=== PATIENT | female | born 1945 | race Caucasian/White ===

== ENCOUNTER 2021-05-31 15:39 | Observation (INO) | payer MEDICARE, OTHER, SELFPAY ==
[2021-05-31] VITALS (11 sets, daily range): BP systolic 62–159; BP diastolic 45–83; PULSE 60–89; RESP 16–20; TEMP 36.6–36.8; O2SAT 95–99; BMI 32.8; BMI 31.2
--- NOTE | 2021-05-31 15:51 | ED.RN ---
CALLED FOR EKG AT 1548.
--- NOTE | 2021-05-31 16:28 | ED.RN ---
PT BP 62/45 ON MONITOR. THIS RN AT BEDSIDE TO REASSESS PT, PT PALE, DAIPHORETIC, C/O DIZZINESS. EMOTIONAL SUPPORT AND DEEP BREATHING PROVIDED. PT BP RETAKEN AND IS 88/61. DR. ALANIS NOTIFIED OF PT SX. PT DENIES CHEST PAIN.
--- NOTE | 2021-05-31 16:35 | EKG12_ITS ---
Test Reason : Blood Pressure : / mmHG Vent. Rate : 070 BPM Atrial Rate : 070 BPM P-R Int : 144 ms QRS Dur : 074 ms QT Int : 390 ms P-R-T Axes : 011 010 036 degrees QTc Int : 421 ms Normal sinus rhythm Normal ECG Confirmed by JOMAR BOWMAN, CONRADO ([id number]), digital editor WARREN LO ([id number]) on 06/03/2021 9:32:45 AM Referred By: EUN Confirmed By:CONRADO HADLEY MD
--- NOTE | 2021-05-31 16:35 | RAD_ITS ---
STUDY: X-RAY CHEST REASON FOR EXAM: Female, 75 years old. chest pain TECHNIQUE: AP COMPARISON: 08/28/2016 FINDINGS: The lungs are clear and expanded. There is no demonstrated pleural abnormality. Normal size heart. Normal mediastinum and butch. Normal visualized pulmonary arteries. There is atherosclerotic calcification of the aortic arch with tortuosity. Normal visualized thoracic spine. Normal visualized ribs, clavicles, and shoulders. Moderate size hiatal hernia. RAD/Chest 1 View (Portable) IMPRESSION: No acute cardiopulmonary process. Electronically Signed: Manny Guevara MD (Brooks) at 17:13 EDT , Service support ,
[2021-05-31 17:03] LABS: Absolute Lymphocyte Count 3.68 X10^3/uL (0.83-4.51); Absolute Neutrophil Count 4.6 X10^3/uL (2.0-7.7); Basophil# 0.03 X10^3/uL; Basophil% 0.3 % (0-1); Eosinophil# 0.11 X10^3/uL; Eosinophils% 1.2 % (0-5); Hematocrit 40.2 % (37-47); Hemoglobin 13.3 g/dL (12.0-15.0); Lymphocyte # 3.68 X10^3/ul (0.83-4.51); Lymphocyte % 40.4 % (19-41); Mean Corp Hgb Conc 33.1 g/dL (32-36); Mean Corpuscular Hgb 29.7 pg (27.0-32.0); Mean Corpuscular Volume 89.7 fL (81-99); Mean Platelet Vol. 13.8 fl (6.2-12.0); Monocyte% 7.7 % (0-10); NRBC Flagged by Analyzer 0 % (0-5); Neutrophil # 4.56 X10^3/uL (2.7-7.7); Neutrophil % 50.2 % (47-70); Platelet Count 226 K/mm3 (150-450); RBC Distribution Width CV 14.2 % (11.6-14.6); Red Blood Count 4.48 M/mm3 (4.2-5.4); White Blood Count 9.1 K/mm3 (4.4-11.0)
[2021-05-31 17:16] LABS: Anion Gap 6 (5-15); BUN 19 mg/dL (7-18); BUN/Creat Ratio 17.3 RATIO (10-20); Calcium,Total 8.8 mg/dL (8.5-10.1); Chloride 106 mmol/L (98-107); EST Glomerular Filtration Rate 51 mL/min (>60); Est Glom Filt Rate - Afr Amer 62 mL/min (>60); Estimated Creatinine Clearance 38.16 ml/min; Glucose 123 mg/dL (74-106); Magnesium 2.2 mg/dL (1.6-2.6); Potassium 4.1 mmol/L (3.5-5.1); Sodium Level 139 mmol/L (136-145); Thyroid Stim Hormone (TSH) 2.27 uIU/mL (0.358-3.74); Troponin-I HS 17 pg/mL (3.0-54.0)
--- NOTE | 2021-05-31 18:03 | EDS_ITS ---
HPI History of Present Illness Chief Complaint: Syncope Informant: patient and family Narrative Narrative: Patient had a syncopal episode today in the store. She had felt fine. She had just recently eaten. She was having no symptoms at all when suddenly she felt lightheaded. She got sweaty. She states her vision got mono color and narrow. She was leaning on some equipment. Her daughter got her sat down in a chair. At that point she seemed to go out and was not responsive for about a minute. There was no actual fall but she had already been put in the chair. She then came back around has been doing well. She had an episode that was not quite as bad here in the emergency department. Evidently her heart rate did not change but she got diaphoretic and all the same symptoms and her blood pressure dropped to about 60 systolic. It is now back to normal. She had no abdominal or back pain no flank pain. No chest pain or palpitations. She has not had black or bloody stools. She is not on anticoagulation other than aspirin. She has no history of heart disease. She has never had symptoms like this before. She was on lisinopril since the summer. She was taken off of that because her blood pressure was dropping too much. About a week ago she was started on losartan 25 mg. [facility] Medical History Former smoker GERD (gastroesophageal reflux disease) HTN (hypertension) Meniere's disease Migraines Osteoporosis TIA (transient ischemic attack) Home Medications aspirin 81 mg PO DAILY@0800 08/28/16 [History Last Taken 05/30/21] estradiol [Estrace] 0.5 mg PO DAILY 08/28/16 [History Last Taken 05/30/21] levothyroxine 88 mcg PO DAILY 08/28/16 [History Last Taken 05/31/21] meclizine 12.5 - 25 mg PO Q6H PRN PRN 08/28/16 [History Last Taken Unknown] meloxicam [Mobic] 15 mg PO DAILY PRN PRN 08/28/16 [History Last Taken Unknown] multivitamin with folic acid [Thera] 1 tab PO DAILY 08/28/16 [History Last Taken 05/30/21] omeprazole 20 mg PO DAILY 08/28/16 [History Last Taken 05/31/21] polyethylene glycol 3350 17 g PO DAILY 08/28/16 [History Last Taken Unknown] losartan 25 mg PO DAILY 05/31/21 [History Last Taken 05/31/21] Allergy/AdvReac Type Severity Reaction Status Date / Time No Known Allergies Allergy Verified 05/31/21 15:39 Family History Mother Dementia Father Heart disease Surgical History H/O abdominal hysterectomy History of appendectomy Hx of cholecystectomy Hx of tonsillectomy Social History household members: other details: Currently living with her daughter. Smoking Status: Former smoker how long ago did patient quit smoking: It several years prior, prior to this 1 pack/day since she been a teenager. alcohol intake: never substance use type: does not use ROS ROS ED Constitutional Constitutional ED: Denies chills or fever(s) Eyes Eyes: Reports change in vision; Denies blurry vision or diplopia ENT ENT ED: Denies rhinorrhea or sore throat Cardiovascular Cardiovascular: Denies chest pain, palpitations or racing heartbeat Respiratory/Chest Respiratory/Chest: Denies cough or dyspnea Gastrointestinal Gastrointestinal: Denies abdominal pain, melena, nausea or vomiting Genitourinary Genitourinary ED: Denies dysuria or urinary frequency Musculoskeletal Musculoskeletal: Denies back pain, myalgias or neck pain Integumentary Reports other Details: Transient diaphoresis ; Denies rash Neurologic Neurologic: Denies headache(s), paresthesias or weakness Endocrine Endocrinology: Denies polydipsia or polyuria Allergic/Immunologic Allergic/Immunologic ED: Denies urticaria EXAM Physical Exam Const Vital Signs: 05/31/21 15:40 05/31/21 15:44 05/31/21 16:15 Temperature 97.8 F Temperature Source Oral Pulse Rate 68 60 Respiratory Rate 20 H 18 Respiratory Effort Normal Non-Labored Respiratory Pattern Normal Blood Pressure 129/65 H 62/45 L Blood Pressure Mean 86 50 Pulse Ox 96 95 Oxygen Delivery Method Room Air Room Air 05/31/21 16:31 05/31/21 16:37 05/31/21 17:04 Temperature Temperature Source Pulse Rate 70 Respiratory Rate 20 H Respiratory Effort Respiratory Pattern Blood Pressure 109/63 140/69 H Blood Pressure Mean 78 92 Pulse Ox 98 99 Oxygen Delivery Method Room Air Room Air 05/31/21 18:09 Temperature 97.8 F Temperature Source Oral Pulse Rate 73 Respiratory Rate 17 Respiratory Effort Respiratory Pattern Blood Pressure 121/73 H Blood Pressure Mean 89 Pulse Ox 95 Oxygen Delivery Method Room Air Positive well nourished and well developed General Appearance ED: well developed and NAD; Negative for pallor HEENT Reports moist mucous membranes Negative for trauma or tenderness Eyes General Eye ED: Negative for pale conjunctiva or scleral icterus Neck No no JVD Chest Wall inspection of chest normal Resp normal respiratory effort and clear to auscultation bilaterally Effort and Inspection: Negative for pain with movement Auscultation: Negative for rales, rhonchi or wheezes Cardio regular rate, regular rhythm and no murmurs GI normal to inspection, nondistended, normoactive bowel sounds, non-tender and non-distended GI Narrative: No bruit heard and no mass felt. Palpation: soft Back/Spine no CVA tenderness Neuro oriented x3 Sensorium / Orientation: alert Psych mental status grossly normal Skin no rashes or lesions noted and no wounds Skin Narrative: No diaphoresis at this time. General Skin Exam: Negative for jaundice or pallor MDM MDM MDM Narrative Medical decision making narrative: Patient's blood work including CBC electrolytes show no acute process. TSH troponin magnesium and D-dimer are also okay. Chest x-ray shows no acute process. My concern is that this patient had 2 new syncopal/near syncopal episodes today. She got diaphoretic with these. She dropped her blood pressure with one of them that we know of. She is comfortable now. There is no history of AAA or symptoms of it. Her D-dimer is negative. No reported melena or blood in the stool. Hemoglobin is normal. However I think with this new onset and multiple episodes she should be admitted. I discussed the case with the hospitalist. Lab Data Attestation: I reviewed the patient's lab results. Labs: Laboratory Results - last 24 hr 05/31/21 05/31/21 05/31/21 15:40 15:40 15:40 WBC 9.1 RBC 4.48 Hgb 13.3 Hct 40.2 MCV 89.7 MCH 29.7 MCHC 33.1 RDW Std Deviation 47.0 H RDW Coeff of [place] 14.2 Plt Count 226 MPV 13.8 H Immature Gran % (Auto) 0.200 Neut % (Auto) 50.2 Lymph % (Auto) 40.4 [place] % (Auto) 7.7 Eos % (Auto) 1.2 Baso % (Auto) 0.3 Absolute Neuts (auto) 4.6 Absolute Lymphs (auto) 3.68 Nucleated RBC % 0 D-Dimer Quant (PE/DVT) 0.40 Sodium 139 Potassium 4.1 Chloride 106 Carbon Dioxide 27.0 Anion Gap 6 BUN 19 H Creatinine 1.10 H Estim Creat Clear Calc 38.16 Est GFR (MDRD) Af Amer 62 Est GFR (MDRD) Non-Af 51 L BUN/Creatinine Ratio 17.3 Glucose 123 H Calcium 8.8 Magnesium 2.2 Troponin I High Sens 17 TSH 2.27 05/31/21 15:40 WBC RBC Hgb Hct MCV MCH MCHC RDW Std Deviation RDW Coeff of [place] Plt Count MPV Immature Gran % (Auto) Neut % (Auto) Lymph % (Auto) [place] % (Auto) Eos % (Auto) Baso % (Auto) Absolute Neuts (auto) Absolute Lymphs (auto) Nucleated RBC % D-Dimer Quant (PE/DVT) Sodium Potassium Chloride Carbon Dioxide Anion Gap BUN Creatinine Estim Creat Clear Calc Est GFR (MDRD) Af Amer Est GFR (MDRD) Non-Af BUN/Creatinine Ratio Glucose Calcium Magnesium 2.2 Troponin I High Sens TSH Radiography Diagnostic Testing: Clinical Impression(s) from Imaging Studies Chest X-Ray 05/31/21 16:35 IMPRESSION: No acute cardiopulmonary process. Electronically Signed: Manny Guevara MD (Brooks) at 17:13 EDT , Service support , EKG Initial EKG: Comments: EKG done for syncope read by me showed a normal sinus rhythm with overall rate of 70. No ectopy. No acute ST elevation or depression. NC interval, QRS duration and QTc are normal. No significant change from 28 August 2016. Discharge Plan Dx/Rx/DC Orders Clinical Impression: Syncope and collapse Disposition Disposition: Acute Care Hospital [facility] Discharge Date/Time: 05/31/21 18:47
--- NOTE | 2021-05-31 18:13 | NURSING ---
PCU OBS WHITE SYNCOPE, HYPOTENSION
--- NOTE | 2021-05-31 19:13 | PCM.HP.STD ---
HPI - General General Date of Admission: 05/31/21 Date of Service: 05/31/21 Chief Complaint: Syncopal events. HPI Narrative The patient is a 75 y/o F w/ PMHx: Former Tobacco use, Meniere's disease, HTN, GERD who presents to the [facility] ED on 05/31/21 with history of syncopal events while walking through [id number], reporting that she felt lightheaded, dizzy, had vision tunneling prompting her to have to sit down with syncopal event lasting 1 to 2 minutes with improvement following however patient did have recurrent event while in the emergency room although did not completely lose consciousness but became diaphoretic, lightheaded, dizzy and described the darkening of her vision with significant decrease in her blood pressure to 62/48 during the event however this improved and she had no recurrent events while in the ED. Work-up in the ED included T 97.8, heart rate 68, BP initially 129/65 with transiently recorded hypotension 62/48 however improved to 140/69, respiratory rate 20, 99% on room air, CBC with WC 9.1, hemoglobin 13.3, platelet 226 without marked shift, BMP with BUN/creatinine 19/1.10, glucose 123 otherwise not marked appearing, mag 2.2, troponin high-sensitivity 17, TSH 2.2, chest x-ray no acute cardiopulmonary finding, EKG with sinus rhythm with no acute evidence of ischemia. [facility] Medical History (Updated 05/31/21 @ 19:[address] Argelia Huff MD) GERD (gastroesophageal reflux disease) HTN (hypertension) Meniere's disease Home Medications aspirin 81 mg PO DAILY@0800 08/28/16 [History Last Taken Unknown] calcium carbonate-vitamin D3 [Caltrate 600 Plus D3 Tablet] 1 ea PO DAILY 08/28/16 [History Last Taken Unknown] estradiol [Estrace] 0.5 mg PO DAILY 08/28/16 [History Last Taken Unknown] levothyroxine 88 mcg PO DAILY 08/28/16 [History Last Taken Unknown] meclizine 12.5 - 25 mg PO Q6H PRN PRN 08/28/16 [History Last Taken Unknown] meloxicam [Mobic] 15 mg PO DAILY PRN PRN 08/28/16 [History Last Taken Unknown] multivitamin with folic acid [Thera] 1 tab PO DAILY 08/28/16 [History Last Taken Unknown] omeprazole 20 mg PO DAILY 08/28/16 [History Last Taken Unknown] polyethylene glycol 3350 17 g PO DAILY 08/28/16 [History Last Taken Unknown] losartan 25 mg PO DAILY 05/31/21 [History Last Taken Unknown] Allergy/AdvReac Type Severity Reaction Status Date / Time No Known Allergies Allergy Verified 05/31/21 15:39 Family History (Updated 05/31/21 @ 19:[address] Argelia Huff MD) Mother Dementia Father Heart disease Surgical History (Updated 05/31/21 @ 15:45 by Mi Pelaez) H/O abdominal hysterectomy History of appendectomy Hx of cholecystectomy Hx of tonsillectomy Social History (Updated 05/31/21 @ 19:[address] Argelia Huff MD) household members: other details: Currently living with her daughter. Smoking Status: Former smoker how long ago did patient quit smoking: It several years prior, prior to this 1 pack/day since she been a teenager. alcohol intake: never substance use type: does not use ROS ROS Narrative Admission Review of Systems: CONSTITUTIONAL: No weight loss, fever, chills, + weakness or fatigue. HEENT: + Vision changes with syncopal and near syncopal events Eyes: No yellow sclerae. Ears, Nose, Throat: No hearing loss, sneezing, congestion, runny nose or sore throat. SKIN: No rash or itching, lesions, wounds. CARDIOVASCULAR: + Syncopal events no chest pain, chest pressure or chest discomfort, palpitations, edema, orthopnea. RESPIRATORY: No shortness of breath, cough or sputum, wheezing, hemoptysis. GASTROINTESTINAL: No anorexia, nausea, vomiting or diarrhea, abdominal pain, melena, BRBPR. GENITOURINARY: No dysuria, frequency, urgency or retention. NEUROLOGICAL: + Syncopal event with collapse, lightheadedness and dizziness. No headache, paralysis, ataxia, numbness or tingling in the extremities, focal weakness, change in bowel or bladder control, seizure. MUSCULOSKELETAL: No muscle, back pain, joint pain or stiffness. HEMATOLOGIC: No anemia, bleeding or bruising. LYMPHATICS: No enlarged nodes. No history of splenectomy. PSYCHIATRIC: No history of depression or anxiety. ENDOCRINOLOGIC: No reports of sweating, cold or heat intolerance. No polyuria or polydipsia. ALLERGIES: No history of asthma, hives, eczema or rhinitis. Vital Signs Vital Signs Vital Signs: 05/31/21 15:40 05/31/21 15:44 05/31/21 16:15 Temperature 97.8 F Temperature Source Oral Pulse Rate 68 60 Respiratory Rate 20 H 18 Respiratory Effort Normal Non-Labored Respiratory Pattern Normal Blood Pressure 129/65 H 62/45 L Blood Pressure Mean 86 50 Pulse Ox 96 95 Oxygen Delivery Method Room Air Room Air 05/31/21 16:31 05/31/21 16:37 05/31/21 17:04 Temperature Temperature Source Pulse Rate 70 Respiratory Rate 20 H Respiratory Effort Respiratory Pattern Blood Pressure 109/63 140/69 H Blood Pressure Mean 78 92 Pulse Ox 98 99 Oxygen Delivery Method Room Air Room Air 05/31/21 18:09 Temperature 97.8 F Temperature Source Oral Pulse Rate 73 Respiratory Rate 17 Respiratory Effort Respiratory Pattern Blood Pressure 121/73 H Blood Pressure Mean 89 Pulse Ox 95 Oxygen Delivery Method Room Air Weight Weight: 191 lb 2.252 oz Body Mass Index (BMI) 32.8 Physical Exam Narrative Physical Examination: General: Awake, alert, oriented x 3 and cooperative, seated upright in the ED bed in no apparent distress, notes feeling improved since initial syncopal event at [facility]'s and near syncopal event while in the ED. Skin: Normal color, normal turgor, no icterus, no cyanosis. HEENT: AT/NC, EOMI, PERRLA, mildly dry MM, no carotid bruits or JVD noted. Lungs: Mildly diminished, appropriate effort, no rales, ronchi or wheezing. Heart: Regular rate and rhythm; no gallop, rub audible. Abdomen: Soft, obese, NTTP, ND, normal BS, no HSM. Extremities: No cyanosis, clubbing, or edema. Neurological: Patient awake, alert, oriented as noted, cognitive function intact; pupils equally reactive to light and accommodation, cranial nerves II-XII grossly normal, moving all 4 extremities, no focal deficits, strength preserved. Psychiatric: Affect appears normal, no acute evidence of depressive or anxiety feelings. Results Lab / Micro Data Result Diagrams: 05/31/21 15:40 05/31/21 15:40 Labs: Laboratory Results - last 24 hr 05/31/21 15:40: WBC 9.1, RBC 4.48, Hgb 13.3, Hct 40.2, MCV 89.7, MCH 29.7, MCHC 33.1, RDW Std Deviation 47.0 H, RDW Coeff of [place] 14.2, Plt Count 226, MPV 13.8 H, Immature Gran % (Auto) 0.200, Neut % (Auto) 50.2, Lymph % (Auto) 40.4, [place] % (Auto) 7.7, Eos % (Auto) 1.2, Baso % (Auto) 0.3, Absolute Neuts (auto) 4.6, Absolute Lymphs (auto) 3.68, Nucleated RBC % 0 05/31/21 15:40: Sodium 139, Potassium 4.1, Chloride 106, Carbon Dioxide 27.0, Anion Gap 6, BUN 19 H, Creatinine 1.10 H, Estim Creat Clear Calc 38.16, Est GFR (MDRD) Af Amer 62, Est GFR (MDRD) Non-Af 51 L, BUN/Creatinine Ratio 17.3, Glucose 123 H, Calcium 8.8, Magnesium 2.2, Troponin I High Sens 17, TSH 2.27 05/31/21 15:40: D-Dimer Quant (PE/DVT) 0.40 Radiology Impression Chest X-Ray 05/31/21 16:35 IMPRESSION: No acute cardiopulmonary process. Electronically Signed: Manny Guevara MD (Brooks) at 17:13 EDT , Service support , Assessment & Plan Assessment/Plan (1) Syncope and collapse: PLAN: The patient is a 75 y/o F w/ PMHx: Former Tobacco use, Meniere's disease, HTN, GERD who presents to the [facility] ED on 05/31/21 with history of syncopal events while walking through [employer] [place], reporting that she felt lightheaded, dizzy, had vision tunneling prompting her to have to sit down with syncopal event lasting 1 to 2 minutes with improvement following however patient did have recurrent event while in the emergency room although did not completely lose consciousness but became diaphoretic, lightheaded, dizzy and described the darkening of her vision with significant decrease in her blood pressure to 62/48 during the event however this improved and she had no recurrent events while in the ED. 1. Syncopal Event, possible iatrogenic with recent BP changes with transient hypotension with recurrent near syncopal event while in the ED: Unclear etiololgy, EKG in ED w/ sinus rhythm without evidence of acute ischemia, CXR w/ no acute cardiopulmonary findings, initial trop normal. Will admit to PCU, place on a monitored bed to assure no acute myocardial infarction with serial cardiac enzymes and EKGs, maintain on fall precautions, obtain admission orthostatic and AM orthostatic VS if notable and increase hydration if appropriate, consider ECHO if remains beyond Wednesday as unable on Wednesday, consider also carotid ultrasound. 2. History M?ni?re's disease: No specific room spinning sensation, has meclizine at home as needed. Hypertension: We will hold patient's regimen given presentation with history of prior episodes similar to the above prompting her current presentation at the time had been on lisinopril x1 week which then was discontinued and she notes transient improvement however has had recurrent events since transition to losartan, PRN hydralazine. 3. Hypothyroidism: Continue home synthroid regimen, TSH normal. 4. Chronic constipation: We will continue patient home polyethylene glycol regimen 5. Obesity: Weight loss and lifestyle changes encouraged. 6. Former tobacco use: Encourage continued tobacco cessation. 7. GERD: We will continue patient on PPI. 8. DVT prophylaxis: SCDs, Lovenox. 9. CODE status: Patient ORA is her daughter who is and living will is currently in place. Discussed CODE status at length including difference between FULL code, DNR-CCA and DNR-CC status. Following discussions about the differences in these status, requested Full Code status. Advanced Care Planning Face to Face Time: 16 minutes. Charges/Coding Visit Charges OBSV E&M: 11220 Initial observation care L3 Procedures Hospitalists Procedures: 22202 Advncd Care Plan 30 Min
--- NOTE | 2021-05-31 19:28 | ECHOD_ITS ---
Reason For Study: Syncope Procedure This was a 2D Doppler, Color Flow transthoracic echocardiogram. Exam performed portable in patient room. Left Ventricle Normal LV size. Left ventricular systolic function is normal. The estimated ejection fraction is 60 %. Stage 1 diastolic dysfunction. No regional wall motion abnormalities noted. Right Ventricle Normal RV size. Normal systolic function. Atria The left atrium is mildly enlarged. Normal right atrium. Mitral Valve Normal mitral valve. Mild (1+) eccentric mitral valve insufficiency. Tricuspid Valve Normal tricuspid valve. Mild tricuspid valve insufficiency. Pulmonary artery systolic pressure is 40 mmHg. Aortic Valve Trisinus/trileaflet aortic valve. Pulmonic Valve Normal pulmonic valve. Great Vessels Normal aortic root. The pulmonary artery is normal size. Normal inferior vena cava. Pericardium/Pleural No pericardial effusion. MMode/2D Measurements & Calculations LVIDd: 4.3 cm IVSd: 0.96 cm Ao root diam: 3.0 cm LVIDs: 2.4 cm LVPWd: 0.96 cm LA dimension: 3.8 cm RVDd: 4.1 cm FS: 43.1 % LAV(MOD-bp): 64.5 ml LA A4 area: 23.7 cm2 LA dimension(2D): 4.3 cm LAV(MOD-bp) Indexed: 33.6 ml/m2 LAV(MOD-sp2): 53.6 ml LAV(MOD-sp4): 66.6 ml RA A4 area: 18.4 cm2 Time Measurements MV dec time: 0.19 sec Doppler Measurements & Calculations MV E max scotty: 96.5 cm/sec Lat Peak E' Scotty: 9.3 cm/sec Med Peak E' Scotty: 6.5 cm/sec MV A max scotty: 108.4 cm/sec E/E' lat: 10.4 E/E' med: 14.8 MV E/A: 0.89 Ao V2 max: 154.4 cm/sec LV V1 max: 108.1 cm/sec PA V2 max: 100.2 cm/sec Ao max P.5 mmHg LV V1 max P.7 mmHg TR max scotty: 300.0 cm/sec TR max P.0 mmHg ECHO/Echo Complete Interpretation Summary Normal LV size. Left ventricular systolic function is normal. The estimated ejection fraction is 60 %. Stage 1 diastolic dysfunction. Pulmonary artery systolic pressure is 40 mmHg. The left atrium is mildly enlarged. Ordering Physician: Argelia Huff Referring Physician: Ross Magallon Performed By: Angela Stewart RDCS, RVT
--- NOTE | 2021-05-31 19:28 | CDU_ITS ---
Reason For Study: syncope Rt. Velocities/BP Lt. Velocities/BP Prox CCA 82.6/16.0 cm/sec. Prox CCA 76.1/17.9 cm/sec. Mid CCA 87.8/18.6 cm/sec. Mid CCA 67.3/16.8 cm/sec. Dist CCA 69.5/14.7 cm/sec. Dist CCA 67.3/17.9 cm/sec. Prox ICA 74.7/22.6 cm/sec. Prox ICA 56.4/11.3 cm/sec. Mid ICA 68.2/21.3 cm/sec. Mid ICA 80.5/27.8 cm/sec. Dist ICA 68.2/22.6 cm/sec. Dist ICA 78.3/25.6 cm/sec. Rt. ICA/CCA = .9. Lt. ICA/CCA = 1.2. Prox ECA 72.1/8.2 cm/sec. Prox ECA 147.7/9.4 cm/sec. Rt. Vert. 38.8/9.1 cm/sec. Lt. Vert. 44.3/12.4 cm/sec. Right Extracranial There is intimal thickening but no significant atherosclerotic plaque noted in the right common carotid artery. There is heterogeneous, irregular atherosclerotic plaque noted in the right internal carotid artery. There is heterogeneous, irregular atherosclerotic plaque noted in the right external carotid artery. Antegrade flow is noted in the right vertebral artery. Left Extracranial There is intimal thickening but no significant atherosclerotic plaque noted in the left common carotid artery. There is heterogeneous, irregular atherosclerotic plaque noted in the left internal carotid artery. There is homogeneous, smooth atherosclerotic plaque noted in the left external carotid artery. Antegrade flow is noted in the left vertebral artery. Procedure Carotid Duplex 98321. This is a Carotid Duplex examination using B-mode, color flow and specral Doppler. The exam was diagnostic. Exam performed portable in patient room. VL/Carotid Duplex Ultrasound Interpretation Summary Calcific plaque at the proximal right internal carotid artery with less than 50 % stenosis Less than 50% stenosis right external carotid artery Minimal calcific plaque to the proximal left internal carotid artery with less than 50% stenosis Less than 50% stenosis left external carotid artery Patent antegrade vertebral arteries bilaterally Ordering Physician: Argelia Huff Performed By: Giancarlo Bae RVT
--- NOTE | 2021-05-31 19:40 | PCS.PANDOC ---
PANDEMIC DOCUMENTATION INITIATED: Date: 04/07/2021 Time: 190
[2021-05-31 20:00] LABS: Magnesium 2.2 mg/dL (1.6-2.6)
[2021-05-31 20:27] LABS: Troponin-I HS 19 pg/mL (3.0-54.0)
[2021-05-31] MEDS: 0.9% Normal Saline 1,000 ML 100 ML IV (22:10)
[2021-05-31 22:18] LABS: Troponin-I HS 18 pg/mL (3.0-54.0)
[2021-06-01] VITALS (12 sets, daily range): BP systolic 95–149; BP diastolic 67–79; PULSE 61–82; RESP 16–18; TEMP 36.5–36.7; O2SAT 93–97
[2021-06-01 05:43] LABS: Basophil# 0.03 X10^3/uL; Basophil% 0.4 % (0-1); Eosinophil# 0.18 X10^3/uL; Eosinophils% 2.3 % (0-5); Hematocrit 37.6 % (37-47); Hemoglobin 12.6 g/dL (12.0-15.0); Lymphocyte % 50.5 % (19-41); Mean Corp Hgb Conc 33.5 g/dL (32-36); Mean Corpuscular Hgb 29.9 pg (27.0-32.0); Mean Corpuscular Volume 89.3 fL (81-99); Mean Platelet Vol. 13.1 fl (6.2-12.0); Monocyte# 0.61 X10^3/uL; Monocyte% 7.9 % (0-10); NRBC Flagged by Analyzer 0 % (0-5); Neutrophil # 2.99 X10^3/uL (2.7-7.7); Neutrophil % 38.8 % (47-70); Platelet Count 194 K/mm3 (150-450); RBC Distribution Width CV 14.3 % (11.6-14.6); RBC Distribution Width SD 46.3 fl (35.1-43.9); Red Blood Count 4.21 M/mm3 (4.2-5.4); White Blood Count 7.7 K/mm3 (4.4-11.0)
--- NOTE | 2021-06-01 05:55 | EKG12_ITS ---
Test Reason : PRE-OP Blood Pressure : / mmHG Vent. Rate : 066 BPM Atrial Rate : 066 BPM P-R Int : 182 ms QRS Dur : 088 ms QT Int : 412 ms P-R-T Axes : 076 052 054 degrees QTc Int : 431 ms Normal sinus rhythm Normal ECG When compared with ECG of 31-MAY-2021 15:56, MANUAL COMPARISON REQUIRED, DATA IS UNCONFIRMED Confirmed by JOMAR BOWMAN, CONRADO ([id number]), material expeditor WARREN LO ([id number]) on 06/04/2021 1:36:14 PM Referred By: RICHI Confirmed By:CONRADO HADLEY MD
[2021-06-01] MEDS: Levothyroxine 88 MCG Tablet PO (06:10)
[2021-06-01 06:16] LABS: ALB/GLOB Ratio 0.9 RATIO (0.9-2.4); AST(SGOT) 15 U/L (15-37); Alanine Aminotransfer ALT/SGPT 19 U/L (13-56); Albumin, Serum 3.1 g/dL (3.2-5.0); Alkaline Phosphatase 60 U/L (45-117); Anion Gap 5 (5-15); BUN 14 mg/dL (7-18); BUN/Creat Ratio 18.3 RATIO (10-20); Calcium,Total 8.4 mg/dL (8.5-10.1); Chloride 112 mmol/L (98-107); Creatinine, Serum 0.76 mg/dL (0.55-1.02); EST Glomerular Filtration Rate 78 mL/min (>60); Est Glom Filt Rate - Afr Amer 95 mL/min (>60); Estimated Creatinine Clearance 41.97 ml/min; Globulin 3.3 g/dL (2.2-4.2); Glucose 94 mg/dL (74-106); Protein, Total 6.4 g/dL (6.4-8.2); Sodium Level 143 mmol/L (136-145)
[2021-06-01] MEDS: 0.9% Normal Saline 1,000 ML 100 ML IV (07:35)
[2021-06-01] MEDS: Aspirin 81 MG TAB.CHEW PO (09:40)
[2021-06-01] MEDS: Pantoprazole Sodium 20 MG Tablet PO (09:40)
[2021-06-01] MEDS: Enoxaparin 40 MG/0.4 ML Syringe SC (09:40)
[2021-06-01] MEDS: Estradiol 0.5 MG Tablet PO (11:59)
--- NOTE | 2021-06-01 12:01 | PN.HOSP_ITS ---
Documented by User: Cass Almonte NP, AMBULATORY SERVICES REPRESENTATIVE-C 06/01/21 12:08 Subjective Subjective Patient seen and examined. No further syncope/presyncope symptoms during admission. Patient reports she has had syncope or near syncope every 1 to 2 weeks since December 2020. She states she has had EKG and blood pressure medication adjustments as outpatient. No other work-up. She denies any aggravating or alleviating factors. States she has had an episode while driving recently. She denies chest pain, shortness of breath, palpitations. Objective Data Objective Data Vital Signs: Vital Signs Temp Pulse Resp BP Pulse Ox 97.7 F L 70 16 147/67 H 93 06/01/21 07:31 06/01/21 10:58 06/01/21 07:31 06/01/21 07:31 06/01/21 08:03 Oxygen Delivery Method Room Air Weight: 184 lb 4.903 oz Body Mass Index (BMI) 31.2 Intake & Output: Intake and Output for Last 24 Hours 05/30/21 05/31/21 06/01/21 23:59 23:59 23:59 Intake Total 500 / 500 941.67 / 941.67 Balance 500 / 500 941.67 / 941.67 Lab / Micro Data Result Diagrams: 06/01/21 04:50 06/01/21 04:50 Labs: Laboratory Results - last 24 hr 05/31/21 15:40: WBC 9.1, RBC 4.48, Hgb 13.3, Hct 40.2, MCV 89.7, MCH 29.7, MCHC 33.1, RDW Std Deviation 47.0 H, RDW Coeff of [place] 14.2, Plt Count 226, MPV 13.8 H , Immature Gran % (Auto) 0.200, Neut % (Auto) 50.2, Lymph % (Auto) 40.4, [place] % (Auto) 7.7, Eos % (Auto) 1.2, Baso % (Auto) 0.3, Absolute Neuts (auto) 4.6, Absolute Lymphs (auto) 3.68, Nucleated RBC % 0 05/31/21 15:40: Sodium 139, Potassium 4.1, Chloride 106, Carbon Dioxide 27.0, Anion Gap 6, BUN 19 H, Creatinine 1.10 H, Estim Creat Clear Calc 38.16, Est GFR (MDRD) Af Amer 62, Est GFR (MDRD) Non-Af 51 L, BUN/Creatinine Ratio 17.3, Glucose 123 H, Calcium 8.8, Magnesium 2.2, Troponin I High Sens 17, TSH 2.27 05/31/21 15:40: D-Dimer Quant (PE/DVT) 0.40 05/31/21 15:40: Magnesium 2.2 05/31/21 19:50: Troponin I High Sens 19 05/31/21 21:39: Troponin I High Sens 18 06/01/21 04:50: WBC 7.7, RBC 4.21, Hgb 12.6, Hct 37.6, MCV 89.3, MCH 29.9, MCHC 33.5, RDW Std Deviation 46.3 H, RDW Coeff of [place] 14.3, Plt Count 194, MPV 13.1 H , Immature Gran % (Auto) 0.100, Neut % (Auto) 38.8 L, Lymph % (Auto) 50.5 H, [place] % (Auto) 7.9, Eos % (Auto) 2.3, Baso % (Auto) 0.4, Absolute Neuts (auto) 3.0, Absolute Lymphs (auto) 3.90, Nucleated RBC % 0 06/01/21 04:50: Sodium 143, Potassium 4.0, Chloride 112 H, Carbon Dioxide 26.0, Anion Gap 5, BUN 14, Creatinine 0.76, Estim Creat Clear Calc 41.97, Est GFR (MDRD) Af Amer 95, Est GFR (MDRD) Non-Af 78, BUN/Creatinine Ratio 18.3, Glucose 94, Calcium 8.4 L, Total Bilirubin 0.30, AST 15, ALT 19, Alkaline Phosphatase 60, Total Protein 6.4, Albumin 3.1 L, Globulin 3.3, Albumin/Globulin Ratio 0.9 Radiography Diagnostic Testing: Radiology Impression Chest X-Ray 05/31/21 16:35 IMPRESSION: No acute cardiopulmonary process. Electronically Signed: Manny Guevara MD ([place]) at 17:13 EDT , Service support , Physical Exam Const alert, oriented x3 and no apparent distress Orientation / Consciousness: awake, oriented to person, oriented to place and oriented to time HEENT normocephalic and moist oral mucous membranes Eyes PERRL, EOMs intact bilaterally and conjunctivae normal Neck no lymphadenopathy Resp normal respiratory effort and clear to auscultation bilaterally Cardio regular rate, regular rhythm and no murmurs Peripheral Pulses: pulses 2+ throughout GI normal to inspection, nondistended, normoactive bowel sounds, non-tender and non-distended Extremity normal to inspection Skin no rashes or lesions noted Lesions: no lesions Rashes: no rashes Trauma: no lacerations or abrasions Neuro CN's II-XII intact bilaterally, no focal motor deficits, no sensory deficits noted and deep tendon reflexes 2+ bilaterally Psych mental status grossly normal and affect normal Assessment & Plan Assessment/Plan (1) Syncope and collapse: PLAN: 1. Syncope, recurrent-patient states frequent intermittent episodes ongoing since December 2020. As outpatient, thought to be related to blood pressure issues however no improvement with adjustment in medications. EKG without ST-T changes. Cardiac enzymes normal. Chest x-ray without acute process. Continue telemetry monitoring. Initial orthostatic vitals negative. Repeat in a.m. Plan for echocardiogram and carotid ultrasound 06/02/2021. Plan for outpatient cardiac event monitor as well. 2. Hypertension-stable, losartan on hold. If blood pressure increases, will need to consider low-dose regimen. 3. 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 4. Hypothyroidism-continue Synthroid. 5. Chronic constipation-on daily MiraLAX. 6. Former tobacco use-encouraged continued cessation. 7. GERD-continue PPI. DVT prophylaxis-Lovenox subcu This patient was seen by BEATRICE Marie under the supervision of Dr. Boyer. Documented by User: Dr. Gregor Boyer MD 06/01/21 13:06 Objective Data Lab / Micro Data Result Diagrams: 06/01/21 04:50 06/01/21 04:50 Assessment & Plan Addt'l Comments This patient was seen in conjunction with BEATRICE Marie . I have in dependently interviewed and examined the patient and reviewed pertinent historical, laboratory, and other data. Please refer to BEATRICE Marie note for details of this patient's presentation, findings, and recommendations. I have reviewed BEATRICE Marie note and concur with documented findings. In brief, patient is a 75-year-old lady admitted with recurrent syncopal episode Physical Examination: GENERAL: cooperative HEENT: Atraumatic; EYES; Anicteric, Normal Conjunctiva NECK; supple, normal thyroid, RESPIRATORY: Diminished to auscultation CARDIOVASCULAR: Regular S1 S2, GI: soft, normoactive bowel sounds, : No Renal angle tenderness; EXTREMITIES: No edema, no clubbing, MUSCULOSKELETAL: no muscle waisting NEURO: Awake; no lateralizing signs. SKIN: No Rash PSYCH; Flat affect Assessment: 1. Recurrent syncopal episode 2. History of M?ni?re's disease 3. Obesity with BMI of 31.6 4. Hypothyroidism 5. GERD 6. DVT prophylaxis Recommendations: 1. I have discussed the results of my overview and impressions with the patient 2. Options for management were reviewed Charges/Coding Visit Charges OBSV E&M: 66948 Subsequent observation care L3
[2021-06-01] MEDS: Mag Hydrox/Al Hydrox/Simeth 30 ML UDC PO (19:46)
[2021-06-02] VITALS (9 sets, daily range): BP systolic 138–167; BP diastolic 70–88; PULSE 60–80; RESP 16–18; TEMP 36.4–37.1; O2SAT 94–98
[2021-06-02] MEDS: 0.9% Normal Saline 1,000 ML 100 ML IV ×2 (00:30→11:43)
[2021-06-02] MEDS: Levothyroxine 88 MCG Tablet PO (05:20)
[2021-06-02] MEDS: Estradiol 0.5 MG Tablet PO (08:54)
[2021-06-02] MEDS: Enoxaparin 40 MG/0.4 ML Syringe SC (08:54)
[2021-06-02] MEDS: Aspirin 81 MG TAB.CHEW PO (08:54)
[2021-06-02] MEDS: Pantoprazole Sodium 20 MG Tablet PO (08:54)
--- NOTE | 2021-06-02 10:11 | CASEMGMT ---
This RN CM to room with RODRÍGUEZ form, explanation done-pt voices understanding, and signs RODRÍGUEZ form. Original to chart and copy to pt. Pt states has MCR IP vs OBS booklet. Pt voices no further questions/concerns/needs. SStaten RN CM
--- NOTE | 2021-06-02 15:52 | DS.PCM_ITS ---
Documented by User: Cass Almonte NP, CLINICAL DATA MANAGEMENT DIRECTOR-C 06/02/21 16:01 Providers Date of Admission: 05/31/21 Date of Discharge: 06/02/21 Primary Care Physician: Ross Magallon Reason For Visit: SYNCOPAL EVENTS Diagnosis Discharge Diagnosis (1) Syncope and collapse: Status: Acute Code(s): R55 - Syncope and collapse Medications at Discharge Home Medications aspirin 81 mg PO DAILY@0800 08/28/16 estradiol [Estrace] 0.5 mg PO DAILY 08/28/16 levothyroxine 88 mcg PO DAILY 08/28/16 meclizine 12.5 - 25 mg PO Q6H PRN PRN 08/28/16 meloxicam [Mobic] 15 mg PO DAILY PRN PRN 08/28/16 multivitamin with folic acid [Thera] 1 tab PO DAILY 08/28/16 omeprazole 20 mg PO DAILY 08/28/16 polyethylene glycol 3350 17 g PO DAILY 08/28/16 losartan 25 mg PO DAILY 05/31/21 Hospital Course Operations None Procedures 2-D Echocardiogram Summary of Care Provided Minutes Spent on Discharge: 35 Hospital Course: Patient is a 75-year-old female admitted 05/31/2021 due to recurrent syncopal events. 1. Syncope, recurrent-patient states frequent intermittent episodes ongoing since December 2020. As outpatient, thought to be related to blood pressure issues however no improvement with adjustment in medications. EKG without ST-T changes. Cardiac enzymes normal. Chest x-ray without acute process. No events on telemetry. Orthostatic vitals negative. Carotid ultrasound with less than 50% stenosis bilaterally. Echocardiogram demonstrates an EF of 60%, stage I diastolic dysfunction, pulmonary artery systolic pressure 40 mmHg. Discharge with order for 30-day event monitor for further evaluation. Follow-up with PCP in 1 week, PCP to receive event monitor report as well. 2. Hypertension-stable,Continue home losartan p25 mg at bedtime. 3. 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 4. Hypothyroidism-continue Synthroid. 5. Chronic constipation-on daily MiraLAX. 6. Former tobacco use-encouraged continued cessation. 7. GERD-continue PPI. Physical Exam Const alert, oriented x3 and no apparent distress Orientation / Consciousness: awake, oriented to person, oriented to place and oriented to time HEENT normocephalic and moist oral mucous membranes Eyes PERRL, EOMs intact bilaterally and conjunctivae normal Neck no lymphadenopathy Resp normal respiratory effort and clear to auscultation bilaterally Cardio regular rate, regular rhythm and no murmurs Peripheral Pulses: pulses 2+ throughout GI normal to inspection, nondistended, normoactive bowel sounds, non-tender and non-distended Extremity normal to inspection Skin no rashes or lesions noted Lesions: no lesions Rashes: no rashes Trauma: no lacerations or abrasions Neuro CN's II-XII intact bilaterally, no focal motor deficits, no sensory deficits noted and deep tendon reflexes 2+ bilaterally Psych mental status grossly normal and affect normal Patient seen and examined prior to discharge. Physical assessment as noted above. Patient is stable for discharge with follow up recommendations as noted above. This patient was seen by BEATRICE Marie under the supervision of Dr. Pizarro. Weight / BMI Weight Weight: 184 lb 15.485 oz Body Mass Index (BMI) 31.2 ABG / Lab / Microbiology Data Result Diagrams: 06/01/21 04:50 06/01/21 04:50 Radiography Diagnostic Testing: Radiology Impression Carotid Duplex 05/31/21 19:28 Interpretation Summary Calcific plaque at the proximal right internal carotid artery with less than 50% stenosis Less than 50% stenosis right external carotid artery Minimal calcific plaque to the proximal left internal carotid artery with less than 50% stenosis Less than 50% stenosis left external carotid artery Patent antegrade vertebral arteries bilaterally _ Ordering Physician: Argelia Huff Performed By: Giancarlo Bae RVT Meaningful Use Info Meaningful Use Diagnoses (Choose all that apply): None applicable Discharge Plan Admission Admit Date/Time: 05/31/21 19:20 Primary Reason for Your Visit: Syncope Attending Provider: Deshawn Pizarro Primary Care Provider: Ross Magallon Discharge Orders/Prescriptions Prescriptions: Continued polyethylene glycol 3350 17 GM powder in packet 17 g PO DAILY RF: 0 meloxicam [Mobic] 15 MG tablet 15 mg PO DAILY PRN PRN (Reason: Pain) RF: 0 levothyroxine 88 MCG tablet 88 mcg PO DAILY RF: 0 meclizine 25 MG tablet 12.5 - 25 mg PO Q6H PRN PRN (Reason: Dizziness) RF: 0 omeprazole 20 MG capsule 20 mg PO DAILY RF: 0 aspirin 81 MG tablet,chewable 81 mg PO DAILY@0800 RF: 0 estradiol [Estrace] 0.5 MG tablet 0.5 mg PO DAILY RF: 0 multivitamin with folic acid [Thera] 1 TABLET tablet 1 tab PO DAILY RF: 0 losartan 25 mg tablet 25 mg PO DAILY RF: 0 Other Ambulatory Orders: 30-Day Event Recorder (Routine) Location: None Selected Ordered By: Cass Almonte NP Referrals / Follow Up: Ross Magallon [Primary Care Provider] - In 1 Week Disposition Disposition (needs filled in before D/C Order can be placed): Home, Self Care Documented by User: Dr. Deshawn Pizarro MD 06/02/21 16:12 Providers Date of Admission: 05/31/21 Reason For Visit: SYNCOPAL EVENTS Medications at Discharge Home Medications aspirin 81 mg PO DAILY@0800 08/28/16 estradiol [Estrace] 0.5 mg PO DAILY 08/28/16 levothyroxine 88 mcg PO DAILY 08/28/16 meclizine 12.5 - 25 mg PO Q6H PRN PRN 08/28/16 meloxicam [Mobic] 15 mg PO DAILY PRN PRN 08/28/16 multivitamin with folic acid [Thera] 1 tab PO DAILY 08/28/16 omeprazole 20 mg PO DAILY 08/28/16 polyethylene glycol 3350 17 g PO DAILY 08/28/16 losartan 25 mg PO DAILY 05/31/21 ABG / Lab / Microbiology Data Result Diagrams: 06/01/21 04:50 06/01/21 04:50 Discharge Plan Admission Admit Date/Time: 05/31/21 19:20 Primary Reason for Your Visit: Syncope Attending Provider: Deshawn Pizarro Primary Care Provider: Ross Magallon Discharge Orders/Prescriptions Prescriptions: Continued polyethylene glycol 3350 17 GM powder in packet 17 g PO DAILY RF: 0 meloxicam [Mobic] 15 MG tablet 15 mg PO DAILY PRN PRN (Reason: Pain) RF: 0 levothyroxine 88 MCG tablet 88 mcg PO DAILY RF: 0 meclizine 25 MG tablet 12.5 - 25 mg PO Q6H PRN PRN (Reason: Dizziness) RF: 0 omeprazole 20 MG capsule 20 mg PO DAILY RF: 0 aspirin 81 MG tablet,chewable 81 mg PO DAILY@0800 RF: 0 estradiol [Estrace] 0.5 MG tablet 0.5 mg PO DAILY RF: 0 multivitamin with folic acid [Thera] 1 TABLET tablet 1 tab PO DAILY RF: 0 losartan 25 mg tablet 25 mg PO DAILY RF: 0 Other Ambulatory Orders: 30-Day Event Recorder (Routine) Location: None Selected Ordered By: Cass Almonte CLINICAL DATA MANAGEMENT DIRECTOR Referrals / Follow Up: Ross Magallon [Primary Care Provider] - In 1 Week Disposition Disposition (needs filled in before D/C Order can be placed): Home, Self Care Charges/Coding Addendum Addendum: Dr. Pizarro: I personally reviewed the chart and examined the patient, and agree with the above findings. 75-year-old female presented with presyncope and episodes of syncope previously. She has had a couple of episodes since the initiation of her blood pressure medications. She says that her PCP had changed her medications after this happened however she does continue to have episodes. One of the episodes happened when she was driving she was able to drum puller the road and it did subside. She denies any sensations of palpitations however will order a 30-day event monitor on discharge. Also discussed with her that it is okay for her to restart her blood pressure medications but to take them at night and see if that helps with the symptoms as she says that her systolic blood pressures prior to initiation of his blood pressure medications were in the 150s. I discussed with her the plan for discharge today she expressed understanding and recommended to going home. She did have an echo which showed a normal EF and a pulmonary artery systolic pressure of 40 mmHg with stage I diastolic dysfunction. Visit Charges OBSV E&M: 01261 Observation care discharge
--- NOTE | 2021-06-02 15:58 | PCM.DC ---
Discharge Instructions Diet Discharge Diet: No restrictions Activity Discharge Activity: Return to Normal Activity and May Not Drive (until follow up with PCP) Dressing / Incision Call your doctor if you observe: Shortness of breath, Dizziness, Fainting spells and Chest pain Follow Up Care Test Results: Test results from this visit will be discussed in further detail at your follow-up appointment, if applicable. Discharge Plan Admission Admit Date/Time: 05/31/21 19:20 Primary Reason for Your Visit: Syncope Attending Provider: Deshawn Pizarro Primary Care Provider: Ross Magallon Discharge Orders/Prescriptions Prescriptions: Continued polyethylene glycol 3350 17 GM powder in packet 17 g PO DAILY RF: 0 meloxicam [Mobic] 15 MG tablet 15 mg PO DAILY PRN PRN (Reason: Pain) RF: 0 levothyroxine 88 MCG tablet 88 mcg PO DAILY RF: 0 meclizine 25 MG tablet 12.5 - 25 mg PO Q6H PRN PRN (Reason: Dizziness) RF: 0 omeprazole 20 MG capsule 20 mg PO DAILY RF: 0 aspirin 81 MG tablet,chewable 81 mg PO DAILY@0800 RF: 0 estradiol [Estrace] 0.5 MG tablet 0.5 mg PO DAILY RF: 0 multivitamin with folic acid [Thera] 1 TABLET tablet 1 tab PO DAILY RF: 0 losartan 25 mg tablet 25 mg PO DAILY RF: 0 Other Ambulatory Orders: 30-Day Event Recorder (Routine) Location: None Selected Ordered By: Cass Almonte NP Referrals / Follow Up: Ross Magallon [Primary Care Provider] - In 1 Week Disposition Disposition (needs filled in before D/C Order can be placed): Home, Self Care
== END 2021-06-02 15:18 | disposition home or self-care (01) ==
LOC: ED 16:52 → PCU 19:31
PROVIDERS: Admitting Provider Family Medicine; Emergency Provider Emergency Medicine; PCP Student in an Organized Health Care Education/Training Program; Visit Provider Family Medicine
DX: R55 Syncope and collapse (principal); Z23 Encounter for immunization; I10 Essential (primary) hypertension; E03.9 Hypothyroidism, unspecified; K59.09 Other constipation; K21.9 Gastro-esophageal reflux disease without esophagitis; E66.9 Obesity, unspecified; H81.09 Meniere's disease, unspecified ear; Z79.899 Other long term (current) drug therapy; Z79.82 Long term (current) use of aspirin; Z87.891 Personal history of nicotine dependence; Z86.73 Personal history of transient ischemic attack (TIA), and cerebral infarction without residual deficits; Z68.31 Body mass index [BMI] 31.0-31.9, adult
CPT/HCPCS: 36415; 71045; 80048; 80053; 83735; 84443; 84484; 85025; 85379; 93005; 93306; 93880; 96360; 96361; 96372; 97161; 97165; 99218; 99251; 99285; J7030; 90686; A4216; G0378; G0463

== ENCOUNTER 2021-11-19 13:28 | Emergency (ER) | payer MEDICARE, OTHER, SELFPAY ==
[2021-11-19 13:29] VITALS: BP 90/53; PULSE 55; RESP 18; TEMP 35.8; O2SAT 92; BMI 31.3
--- NOTE | 2021-11-19 13:42 | RAD_ITS ---
STUDY: X-RAY - LEFT HUMERUS REASON FOR EXAM: Female, 76 years old. Fall TECHNIQUE: 2 view(s) of the humerus. COMPARISON: None. FINDINGS: There is a comminuted and impacted fracture of the humeral neck with medial displacement of the distal humerus. No dislocation is visualized. There is no demonstrated soft tissue abnormality. RAD/Humerus min 2 Views IMPRESSION: Proximal humeral fracture. Electronically Signed: Idalia Zuniga MD at 14:23 EDT ,
--- NOTE | 2021-11-19 13:42 | RAD_ITS ---
STUDY: X-RAY - LEFT KNEE REASON FOR EXAM: Female, 76 years old. Fall TECHNIQUE: 4 view(s) of the knee. COMPARISON: None. FINDINGS: Normal visualized distal femur. Normal visualized proximal tibia and fibula. Normal proximal tibiofibular articulation. There is mild degenerative arthrosis of the medial femorotibial compartment. Normal lateral femorotibial compartment. There is mild degenerative arthrosis of the patellofemoral articulation. The soft tissue structures are unremarkable. RAD/Knee 4 or More Views IMPRESSION: There are degenerative changes. Electronically Signed: Idalia Zuniga MD at 14:22 EDT ,
--- NOTE | 2021-11-19 13:42 | RAD_ITS ---
STUDY: X-RAY - LEFT SHOULDER REASON FOR EXAM: Female, 76 years old. Trauma TECHNIQUE: 2 view(s) of the shoulder. COMPARISON: None. FINDINGS: There is a comminuted fracture of the surgical neck of the humerus that appears to extend into the lateral head. There is medial displacement of the distal humerus. There are degenerative changes of the acromioclavicular joint. RAD/Shoulder min 2 Views IMPRESSION: Comminuted proximal humeral fracture. Electronically Signed: Idalia Zuniga MD at 14:21 EDT ,
--- NOTE | 2021-11-19 13:43 | ED.VIS.FALL ---
HPI HPI - Fall History of Present Illness Chief Complaint: Fall Detail of Chief Complaint: Tripped over her dog. Injuring left shoulder and left knee. Informant: patient Occured/Mechanism Occurred: Today and Hours Usually ambulates: Without assistance Pain/Injury Pain Location: upper extremity and lower extremity Quality of Pain: Sharp Current Severity: Moderate Maximum Severity: Moderate Associated Symptoms Associated Symptoms: Negative for Parasthesias, Weakness, Inability to ambulate, Loss of consciousness and Amnesia Narrative Narrative: 76-year-old female treated for hypertension on blood pressure medications but recently they have had problems with her blood pressure running low. She was actually admitted to the hospital for that worked up in the past. Also had a prior TIA. Today she was at home was doing some things and tripped over her dog landing on her left knee and twisting her left arm awkwardly. Complaining of left shoulder and upper arm pain and left knee discomfort. Did not hit her head. No LOC. No abdominal or chest pain. She is on no blood thinners. Prior to the fall she was feeling well. In the squad her initial blood pressure was 103/70. She was given IV fentanyl and Zofran and her pressure currently is 90/53. Prior similar symptoms: No Recent Illness/Hospitalization: No PFSH PFS Medical History Former smoker GERD (gastroesophageal reflux disease) HTN (hypertension) Meniere's disease Migraines Osteoporosis TIA (transient ischemic attack) Home Medications aspirin 81 mg PO DAILY@0800 08/28/16 [History Last Taken 05/30/21] estradiol [Estrace] 0.5 mg PO DAILY 08/28/16 [History Last Taken 05/30/21] levothyroxine 88 mcg PO DAILY 08/28/16 [History Last Taken 05/31/21] meclizine 12.5 - 25 mg PO Q6H PRN PRN 08/28/16 [History Last Taken Unknown] meloxicam [Mobic] 15 mg PO DAILY PRN PRN 08/28/16 [History Last Taken Unknown] multivitamin with folic acid [Thera] 1 tab PO DAILY 08/28/16 [History Last Taken 05/30/21] omeprazole 20 mg PO DAILY 08/28/16 [History Last Taken 05/31/21] polyethylene glycol 3350 17 g PO DAILY 08/28/16 [History Last Taken Unknown] losartan 25 mg PO DAILY 05/31/21 [History Last Taken 05/31/21] hydrocodone-acetaminophen 1 tab PO Q4H PRN 4 Days #20 tab 11/19/21 [Rx Last Taken Unknown] Allergy/AdvReac Type Severity Reaction Status Date / Time No Known Allergies Allergy Verified 11/19/21 13:28 Family History Mother Dementia Father Heart disease Surgical History H/O abdominal hysterectomy History of appendectomy Hx of cholecystectomy Hx of tonsillectomy Social History household members: other details: Currently living with her daughter. Smoking Status: Former smoker how long ago did patient quit smoking: It several years prior, prior to this 1 pack/day since she been a teenager. alcohol intake: never substance use type: does not use ROS ROS ED ROS Narrative No recent illness. Review of Systems ROS Unobtainable: Denies due to encephalopathy Constitutional Constitutional ED: Denies fever(s) Eyes Eyes: Denies change in vision ENT ENT ED: Denies ear pain Cardiovascular Cardiovascular: Denies chest pain Respiratory/Chest Respiratory/Chest: Denies dyspnea Gastrointestinal Gastrointestinal: Denies abdominal pain Genitourinary Genitourinary ED: Denies dysuria Musculoskeletal Musculoskeletal: Denies myalgias Integumentary Denies rash Neurologic Neurologic: Denies headache(s) Psychiatric Psychiatric: Denies depression Endocrine Endocrinology: Denies polyuria Hematologic/Lymphatic Hematologic/Lymphatic: Denies easy bruising Allergic/Immunologic Allergic/Immunologic ED: Denies urticaria EXAM Physical Exam Narrative Exam Narrative: 76-year-old female with a sling on her left arm. Vital signs stable her blood pressure is 90/53. She was treated with pain medications prior to arrival by the [facility]. She has had a history of low blood pressures. H EENT exam unremarkable atraumatic. Nontender. No trauma to her face or scalp. C-spine nontender. Trachea midline. Lungs clear to auscultation. Chest wall nontender. Heart regular rate and rhythm rate about 60. Abdomen soft nontender normal bowel sounds no peritoneal signs. Pelvic girdle intact. No shortening or rotation of either lower extremity. She is a contusion with abrasions on her left knee. Mild tenderness. No deformity. Flexion extension intact. ACL, PCL, LCL and MCL are all intact. Dorsi plantarflexion intact in both feet. Right lower extremity is nontender with normal range of motion. Right upper extremity is nontender normal welfare eligibility interviewer strength and range of motion. Left shoulder is tender as is the upper arm. The elbow, forearm wrist and hand are nontender. Normal welfare eligibility interviewer strength. Normal radial pulse. Normal sensation. Back is nontender. Neurologically she is awake and alert with no focal motor deficits. Const Vital Signs: 11/19/21 13:29 11/19/21 13:35 Temperature 96.5 F L Temperature Source Temporal Pulse Rate 55 L Respiratory Rate 18 Respiratory Effort Normal Non-Labored Respiratory Depth Normal Respiratory Pattern Normal Blood Pressure 90/53 L Blood Pressure Mean 65 Pulse Ox 92 Oxygen Delivery Method Room Air Positive well nourished and well developed; Negative for obese, cachectic, contractures or unkempt General Appearance ED: well developed and NAD; Negative for unkempt, cachectic or contractures Nutritional Appearance: Negative for cachectic or obese HEENT Reports normocephalic atraumatic; Negative for trauma or tenderness Eyes PERRL and EOMs intact bilaterally General Eye ED: Negative for pale conjunctiva or scleral icterus Neck full ROM, no lymphadenopathy and supple General: Negative for tenderness Chest Wall inspection of chest normal and palpation of chest normal Resp normal respiratory effort, no retractions and clear to auscultation bilaterally Auscultation: Negative for rales, rhonchi or wheezes Cardio regular rate, regular rhythm, S1 normal heart sound, S2 normal heart sound and no murmurs GI non-tender, non-distended and no masses Auscultation: normoactive bowel sounds Palpation: soft; Negative for guarding Back/Spine no CVA tenderness General Back: Negative for CVA tenderness Cervical Spine: Negative for cervical spine tenderness Thoracic Spine / Upper Back: Negative for thoracic spinal tenderness Lumbar Spine / Lower Back: Negative for lumbar spinal tenderness or paraspinal muscle tenderness Extremity Negative for normal to inspection or full ROM Extremity Narrative: Tenderness left shoulder. Tenderness proximal humerus. Contusion abrasion left knee. Right upper and lower extremity unremarkable. Neuro oriented x3 and moves all extremities [place] Coma Scale: document GCS findings Spontaneous Obeys Commands Oriented 15 Sensorium / Orientation: alert, oriented to person, oriented to place and oriented to time; Negative for orientation impaired, confused, lethargic or stuporous Motor Exam: strength 5/5 throughout Psych mental status grossly normal and thought process normal Appearance: Negative for unkempt Attitude: No agitated Mood & Affect: Negative for depressed or tearful Skin Lesions: no lesions Rashes: no rashes Trauma: abrasion MDM MDM MDM Narrative Medical decision making narrative: 76-year-old female tripped over her dog and fell. Concern for a left humerus or shoulder fracture. X-rays being obtained of that and her knee. She has low blood pressure but she runs low blood pressure from time to time and has had that worked up in the past. Her pressure was 103/70 prior to squad treating her with IV fentanyl. Repeat exam at 2:50 PM patient doing well. She will be given no dose of pain medication. She lives alone at home. She did contact a friend to pick her up. She will let her family know what occurred. Radiography Diagnostic Testing: Clinical Impression(s) from Imaging Studies Humerus X-Ray 11/19/21 13:42 IMPRESSION: Proximal humeral fracture. Electronically Signed: Idalia Zuniga MD at 14:23 EDT , Knee X-Ray 11/19/21 13:42 IMPRESSION: There are degenerative changes. Electronically Signed: Idalia Zuniga MD at 14:22 EDT , Shoulder X-Ray 11/19/21 13:42 IMPRESSION: Comminuted proximal humeral fracture. Electronically Signed: Idalia Zuniga MD at 14:21 EDT , Left shoulder x-ray 2 views shows a comminuted proximal humerus (surgical neck) fracture. Interpreted by myself and the radiologist. Left humerus x-ray 2 views interpreted by myself the radiologist shows a comminuted proximal humerus fracture. Left knee x-ray 4 views interpreted by myself and the radiologist shows no acute abnormality. No fracture nor dislocation. Discharge Plan Triage Chief Complaint: Fall ED Provider: Travis Walls Dx/Rx/DC Orders Clinical Impression: Fall, Left humeral fracture Instructions: ED Fracture, Upper Extremity Prescriptions: New hydrocodone-acetaminophen 5-325 mg tablet 1 tab PO Q4H PRN (Reason: pain) 4 Days Qty: 20 RF: 0 No Action polyethylene glycol 3350 17 GM powder in packet 17 g PO DAILY RF: 0 meloxicam [Mobic] 15 MG tablet 15 mg PO DAILY PRN PRN (Reason: Pain) RF: 0 levothyroxine 88 MCG tablet 88 mcg PO DAILY RF: 0 meclizine 25 MG tablet 12.5 - 25 mg PO Q6H PRN PRN (Reason: Dizziness) RF: 0 omeprazole 20 MG capsule 20 mg PO DAILY RF: 0 aspirin 81 MG tablet,chewable 81 mg PO DAILY@0800 RF: 0 estradiol [Estrace] 0.5 MG tablet 0.5 mg PO DAILY RF: 0 multivitamin with folic acid [Thera] 1 TABLET tablet 1 tab PO DAILY RF: 0 losartan 25 mg tablet 25 mg PO DAILY RF: 0 Primary Care Provider: Ross Magallon Referrals: Salvador Mcmahon MD [STAFF PHYSICIAN] - As soon as possible Ross Magallon [Primary Care Provider] - Activity Restrictions/Additional Instructions: You have a broken left proximal humerus right by your shoulder. Sling to immobilize the fracture site. Be very careful because this will make it difficult to balance and you could have additional falls. Ice to the area. Call and follow-up with a local orthopedic physician. Dr. Salvador Mcmahon of [facility] is concrete vibrator operator today. [place] as needed for pain. 1 every 4 hours as needed. If you do not need it you do not have to take it or you can take it less frequently. Make sure you are drinking plenty of fluids and eating plenty of fiber to prevent constipation or you can also use a stool softener. Disposition Disposition: Home, Self Care
[2021-11-19] MEDS: Morphine 4 MG/ML Syringe IV (15:12)
[2021-11-19 15:15] VITALS: BP 113/64; PULSE 62; RESP 18; O2SAT 97
[2021-11-19 15:37] VITALS: BP 113/64; PULSE 65; RESP 16; O2SAT 97
--- NOTE | 2021-11-21 14:10 | CM.ED ---
ER RNCM DC F/u Call: Seen in ER 11.19.21 for trip fall w/Humerus fx Called patient home number listed on demographics, patient answered and this provider introduced self and role. Patient states I'm doing pretty good. Pain controlled with the pain medications and states that she f/u with the Ortho doctor today. No voiced concerns or issues to this singer songwriter. Kimo Perez RNCM
== END 2021-11-19 16:02 | disposition home or self-care (01) ==
PROVIDERS: Emergency Provider Emergency Medicine; PCP Student in an Organized Health Care Education/Training Program; Visit Provider Emergency Medicine
DX: S42.212A Unspecified displaced fracture of surgical neck of left humerus, initial encounter for closed fracture (principal); S80.02XA Contusion of left knee, initial encounter; I10 Essential (primary) hypertension; W01.0XXA Fall on same level from slipping, tripping and stumbling without subsequent striking against object, initial encounter; Y92.009 Unspecified place in unspecified non-institutional (private) residence as the place of occurrence of the external cause; I95.9 Hypotension, unspecified; K21.9 Gastro-esophageal reflux disease without esophagitis; Z79.1 Long term (current) use of non-steroidal anti-inflammatories (NSAID); Z79.82 Long term (current) use of aspirin; Z79.890 Hormone replacement therapy; Z79.899 Other long term (current) drug therapy; Z86.73 Personal history of transient ischemic attack (TIA), and cerebral infarction without residual deficits; Z87.891 Personal history of nicotine dependence
CPT/HCPCS: 73030; 73060; 73564; 99285

== ENCOUNTER 2022-11-17 10:51 | Day surgery (SDC) | payer MEDICARE, SELFPAY ==
[2022-11-17 11:16] VITALS: BP 147/76; PULSE 61; RESP 16; TEMP 36.4; O2SAT 96; BMI 31.1
[2022-11-17] MEDS: Lactated Ringers 1,000 ML 15 ML IV (11:27)
--- NOTE | 2022-11-17 11:51 | HP.PCM_ITS ---
History and Physical Date of Admission: 11/17/22 77 F who presents to the office today to establish with GI for GERD, dysphagia, hx Zee's esophagus. Long hx of GERD, on PPI for approx 30 yrs, first EGD in 1998, has hiatal hernia. Currently takes esomeprazole 40 mg daily, mostly effective. Food is getting temporarily stuck in lower esophagus about once a week, then flare of heartburn afterwards which is relieved with an OTC antacid. No nausea or vomiting, no early satiety, no abdominal pain. Most recent EGD by operations support professionals Dr Sanchez at [facility] in 09/2018, there were esophageal mucosal changes consistent with short segment Zee's at the GE junction, maximum longitudinal extent was 1 cm; normal stomach; hiatal hernia; normal duodenum; biopsies for negative for Zee's (gastric type mucosa with chronic inflammation and squamous mucosa with regenerative epithelial changes, negative for intestinal metaplasia or dysplasia). She also had a colonoscopy in 09/2018; rectal polyp--sessile serrated polyp. Daily Miralax keeps her bowels moving nicely. No melena or hematochezia. No abd pain. Brother had esophageal cancer ROS Const Constitutional: No fatigue, fever(s), frequent falls, headache(s) or weight change ENT ENT: Positive for difficulty swallowing; No headache(s) Cardio Cardiology: No leg pain with exertion Gastro GI: Positive for abdominal pain, bloating, heartburn and difficulty swallowing; No change in bowel habits, constipation, diarrhea, Vomiting blood/hematemesis, Blood in stool, nausea/dyspepsia or vomiting Musc Musculoskeletal: No abnormal gait, joint pain, back pain, joint swelling, muscle cramps, muscle weakness, numbness, stiffness, tingling, Arthritis, sciatica, leg pain at night or leg pain with exertion Skin Skin: No dry skin, lesions, itchy eyes or rash Neuro Neurology: No abnormal gait, dizziness, frequent falls, headache(s), numbness, tingling, tremor(s), Increased tone in limbs, paralysis or seizures Psych Psychiatric: No anxiety, No depression, No paranoia, No Behavioral Problems, No Compulsive Behavior, No hyperactivity, No inattentiveness, No obsessions/compulsions, No Temper Tantrums and No suicidal ideation Endo Endocrine: No fatigue or weight change Aller/Imm Allergy/Immunologic: No itchy eyes Juan Diego/Lymp Hematologic/Lymphatic: No easy bleeding or easy bruising Exam Const General: cooperative, comfortable and no acute distress Orientation: alert, awake and oriented x3 HENMT Head: normal to inspection Eyes Sclera: sclerae normal Neck Neck: normal visual inspection Chest Chest palpation & inspection: normal inspection of the chest Resp Effort & Inspection: normal respiratory effort GI Inspection: normal to inspection Palpation: soft and nontender Skin General: no rashes or lesions noted Psych Mood: euthymic mood Quality Reporting Tobacco Screening ([facility]) Smoking Status: Former smoker Assessment and Plan Assessment and Plan (1) GERD (gastroesophageal reflux disease): ?Status:?Chronic ?Plan: Continue PPI EGD to eval for esophagitis, Zee's, dysplasia, stricture, gastritis, or other f/u in office 2 wks later for discussion of bx results (2) History of Zee's esophagus: ?Status:?Chronic ?Plan: see above Coding Level of Care Code Off vis,new,level 3 Diagnoses GERD (gastroesophageal reflux disease)? K21.9 History of Zee's esophagus? Z87.19 I have examined the patient and the H&P has been reviewed. There are no clinical changes since date of exam.
--- NOTE | 2022-11-17 12:00 | EGD_PTH ---
PATIENT: ROSE PEDROZA LOC: EN U#:[id number] AGE/SX: 77/F ROOM: RE11/17/[address]: Dr. Tariq Cardenas DO : 1945 BED: DIS: 11/17/2022 SPEC #: [id number] RECD: 11/17/22 16:42 STATUS: SHILA RECaty #: [id number] MARIA DE JESUS: 11/17/22 12:[address]: Tariq Cardenas DEPT: SURGICAL PATHOLOGY RECD BY: Phyllis Wylie ENTERED: 11/18/22 09:25 SP TYPE: EGD BIOPSY OTHR DR: Ross Magallon Tissues: Esophagus, NOS Procedures: Special Stain Group II Surgery Specimen Level IV Alcian Blue/PAS (control) HEADER OPERATION: E[place] [place] PRE-OP DIAGNOSIS: GERD TISSUE SUBMITTED: Distal esophagus MICROSCOPIC DIAGNOSIS Distal esophagus, biopsy: Gastroesophageal junctional mucosa with mild chronic inflammation. No evidence of goblet cell metaplasia. See comment. AM:monster 11/19/2022 COMMENT Alcian blue/PAS stain with matched control supports the above diagnosis. MICROSCOPIC DESCRIPTION Slides are reviewed. GROSS DESCRIPTION Received in fixative is one container labeled with the patient's name and designated distal esophagus. The specimen consists of two irregular fragments of light linares soft tissue that in aggregate measure 0.7 x 0.6 x 0.2 cm. The specimen is totally submitted in one cassette. / AM:monster 11/18/2022 TC:3 CPT: 24220, 10215
[2022-11-17 12:29] VITALS: BP 147/76; BP 92/67; PULSE 72; RESP 16; TEMP 36.2; O2SAT 93
--- NOTE | 2022-11-17 12:34 | OP.EGD_ITS ---
Patient Name: Shell Rodrigues Procedure Date: 11/17/2022 10:56 AM Date of : 1945 Age: 77 Procedure: Upper GI endoscopy Indications: Dysphagia, Heartburn Providers: Tariq Cardenas DO Medicines: Monitored Anesthesia Care Patient Profile: This is a 77 year old female. Refer to note in patient chart for documentation of history and physical. Patient has symptoms of chronic dysphagia and dysphagia with both liquids and solids. Complications: No immediate complications. Procedure: Pre-Anesthesia Assessment: - Prior to the procedure, a History and Physical was performed, and patient medications and allergies were reviewed. The risks and benefits of the procedure and the sedation options and risks were discussed with the patient. All questions were answered and informed consent was obtained. Patient identification and proposed procedure were verified by the physician in the pre-procedure area. Mental Status Examination: normal. Prophylactic Antibiotics: The patient does not require prophylactic antibiotics. Prior Anticoagulants: The patient has taken no previous anticoagulant or antiplatelet agents. After reviewing the risks and benefits, the patient was deemed in satisfactory condition to undergo the procedure. The anesthesia plan was to use monitored anesthesia care (MAC). Immediately prior to administration of medications, the patient was re-assessed for adequacy to receive sedatives. The heart rate, respiratory rate, oxygen saturations, blood pressure, adequacy of pulmonary ventilation, and response to care were monitored throughout the procedure. The physical status of the patient was re-assessed after the procedure. After obtaining informed consent, the endoscope was passed under direct vision. Throughout the procedure, the patient's blood pressure, pulse, and oxygen saturations were monitored continuously. The gastroscope was introduced through the mouth, and advanced to the second part of duodenum. The upper GI endoscopy was accomplished with ease. The patient tolerated the procedure well. Scope In: 12:11:38 PM Scope Out: 12:22:54 PM Total Procedure Duration Time 0 hours 11 minutes 16 seconds Findings: The Z-line was irregular and was found 40 cm from the incisors. Biopsies were taken with a cold forceps for histology. Verification of patient identification for the specimen was done. Estimated blood loss was minimal. A large hiatal hernia was present. The second portion of the duodenum was normal. Impression: - Z-line irregular, 40 cm from the incisors. Biopsied. - Large hiatal hernia. - Normal second portion of the duodenum. Recommendation: - Discharge patient to home. - Resume previous diet. - Use Protonix (pantoprazole) 40 mg PO BID daily. - Continue present medications. Procedure Code(s): --- Professional --- 51682, Esophagogastroduodenoscopy, flexible, transoral; with biopsy, single or multiple CPT copyright 2017 [employer]. All rights reserved. The codes documented in this report are preliminary and upon grinder dresser review may be revised to meet current compliance requirements. Tariq Cardenas DO 11/17/2022 12:34:32 PM This report has been signed electronically. Number of Addenda: 0 Note Initiated On: 11/17/2022 10:56 AM
[2022-11-17 12:35] VITALS: BP 104/66; BP 147/76; PULSE 62; RESP 16; O2SAT 93
--- NOTE | 2022-11-17 12:35 | OP.CCLET_ITS ---
11/17/2022 Ross Magallon Re : Upper GI endoscopy procedure for Shell Rodrigues Dear Naun This procedure was performed on Thursday, November 17, 2022. My impressions and recommendations are as follows: Impressions : - Z-line irregular, 40 cm from the incisors. Biopsied. - Large hiatal hernia. - Normal second portion of the duodenum. Recommendations : - Discharge patient to home. - Resume previous diet. - Use Protonix (pantoprazole) 40 mg PO BID daily. - Continue present medications. My findings are described in the full procedure note, which is enclosed. If I can be of further assistance, please feel free to contact me at . Sincerely, Tariq Cardenas, 11/17/2022 12:34:32 PM This report has been signed electronically.
[2022-11-17 12:40] VITALS: BP 114/69; BP 147/76; PULSE 62; RESP 16; O2SAT 92
[2022-11-17 12:45] VITALS: BP 124/74; BP 147/76; PULSE 61; RESP 16; TEMP 36.2; O2SAT 94
[2022-11-17 13:04] VITALS: BP 147/76
== END 2022-11-17 13:30 | disposition home or self-care (01) ==
LOC: EN 10:54 → AC 10:54
PROVIDERS: PCP Student in an Organized Health Care Education/Training Program; Referring Provider Student in an Organized Health Care Education/Training Program; Visit Provider Internal Medicine Gastroenterology
PROC: 0DJ08ZZ Inspection of Upper Intestinal Tract, Via Natural or Artificial Opening Endoscopic (ICD-10-PCS; CPT 43235; principal; 2022-11-17 11:55)
DX: K44.9 Diaphragmatic hernia without obstruction or gangrene (principal); Z87.891 Personal history of nicotine dependence; Z87.19 Personal history of other diseases of the digestive system; K21.9 Gastro-esophageal reflux disease without esophagitis; Z79.899 Other long term (current) drug therapy; I10 Essential (primary) hypertension; E78.5 Hyperlipidemia, unspecified; E03.9 Hypothyroidism, unspecified; Z79.890 Hormone replacement therapy; Z90.49 Acquired absence of other specified parts of digestive tract
CPT/HCPCS: 43239; 88305; 88313; J7120; J2405

== ENCOUNTER → 2022-12-09 | Outpatient (CLI) | payer MEDICARE, SELFPAY ==
--- NOTE | 2022-12-09 09:02 | RAD_ITS ---
STUDY: X-RAY - ESOPHAGUS (BARIUM SWALLOW) WITH FLUOROSCOPY REASON FOR EXAM: Female, 77 years old. Hiatal hernia, esophagus telescoping, dysphagia TECHNIQUE: 21 view(s) of the esophagus were obtained following swallowing of barium. FLUOROSCOPY TIME (if supplied): (37 seconds) minutes/seconds. 14.9 mGy COMPARISON: None. FINDINGS: There is no demonstrated esophageal foreign body. There is no demonstrated stricture or mucosal abnormality. Large sliding hiatal hernia without gastroesophageal reflux. The patient ingested a 12 mm tablet of barium without any difficulty. There is atherosclerotic calcification of the aortic arch with tortuosity of the descending aorta. Normal visualized pulmonary parenchyma. There are diffuse degenerative changes of the visualized thoracic spine. RAD/Esophagus Dual Contrast IMPRESSION: Large hiatal hernia without gastroesophageal reflux. Electronically Signed: Varinder Pryor MD at 10:35 EDT ,
== END | disposition home or self-care (01) ==
LOC: RAD 08:59
PROVIDERS: PCP Student in an Organized Health Care Education/Training Program; Referring Provider Nurse Practitioner Adult Health; Visit Provider Nurse Practitioner Adult Health
DX: R13.10 Dysphagia, unspecified (principal); K21.9 Gastro-esophageal reflux disease without esophagitis; K44.9 Diaphragmatic hernia without obstruction or gangrene
CPT/HCPCS: 74221

== ENCOUNTER → 2023-05-20 | Outpatient (CLI) | payer MEDICARE, SELFPAY ==
--- NOTE | 2023-05-20 07:49 | RAD_ITS ---
STUDY: X-RAY - ESOPHAGUS (BARIUM SWALLOW) WITH FLUOROSCOPY REASON FOR EXAM: Female, 77 years old. Dysphagia TECHNIQUE: 17 view(s) of the esophagus were obtained following swallowing of barium. FLUOROSCOPY TIME (if supplied): (50 seconds) minutes/seconds COMPARISON: Comparison is made with prior study December 09, 2022. FINDINGS: There is no demonstrated esophageal foreign body. There is no demonstrated stricture or mucosal abnormality. Large hiatal hernia with a small weblike narrowing. The patient ingests a 12 mm tablet of barium without any difficulty. There is atherosclerotic tortuosity of the aortic arch and descending thoracic aorta. Normal visualized pulmonary parenchyma. There are diffuse degenerative changes of the visualized thoracic spine. RAD/Esophagus Dual Contrast IMPRESSION: Large hiatal hernia without gastroesophageal reflux. Electronically Signed: Varinder Pryor MD at 10:35 EDT ,
== END | disposition home or self-care (01) ==
PROVIDERS: PCP Student in an Organized Health Care Education/Training Program; Referring Provider Internal Medicine Gastroenterology; Visit Provider Internal Medicine Gastroenterology
DX: R13.10 Dysphagia, unspecified (principal)
CPT/HCPCS: 74221

== ENCOUNTER 2023-07-05 21:33 | Emergency (ER) | payer MEDICARE, SELFPAY ==
[2023-07-05 21:34] VITALS: BP 182/101; PULSE 75; RESP 18; TEMP 36.4; O2SAT 98; BMI 31.4
--- NOTE | 2023-07-05 22:25 | RAD_ITS ---
INDICATION: FALL EXAMINATION/TECHNIQUE: X-RAY - RIGHT XR Wrist Min 3 Views COMPARISON: None. FINDINGS: 3 views of the right wrist. Comminuted impacted displaced intra-articular right distal radius fracture. No other definite acute osseous abnormality. RAD/Wrist min 3 Views IMPRESSION: Right distal radius fracture. Electronically Signed: John Ma MD at 23:38 EST ,
[2023-07-05 23:30] VITALS: BP 159/72; PULSE 79; RESP 18; O2SAT 92
[2023-07-05] MEDS: Acetaminophen 500 MG Tablet 1000 MG PO (23:39)
--- NOTE | 2023-07-06 00:40 | EDS_ITS ---
HPI History of Present Illness Chief Complaint: Upper Extremity Injury Informant: patient Narrative Narrative: 77-year-old female presenting to the emergency room following a fall. Patient states that tonight she was letting her dog out when she sustained a mechanical fall falling backwards on outstretched hand. Patient states that she injured her right wrist. She denies hitting her head. She denies headache neck pain back pain. [facility] Medical History Arthritis Benign neoplasm of stomach Bladder disease Cardiology follow-up encounter Constipation DDD (degenerative disc disease) Epigastric pain Former smoker GERD (gastroesophageal reflux disease) Hiatal hernia History of echocardiogram History of ulceration HLD (hyperlipidemia) HTN (hypertension) Hypothyroidism IBS (irritable bowel syndrome) Injury of head and neck Iron deficiency anemia Leg cramps Medial epicondylitis, left elbow Meniere's disease Osteoporosis Post-menopausal Shoulder fracture, right TIA (transient ischemic attack) Wears dentures Wears glasses Home Medications aspirin 81 mg chewable tablet 81 mg PO DAILY@0800 08/28/16 [History Last Taken 05/30/21] estradiol 0.5 mg tablet (Estrace) 0.5 mg PO DAILY 08/28/16 [History Last Taken 05/30/21] levothyroxine 88 mcg tablet 88 mcg PO DAILY 08/28/16 [History Last Taken 11/17/22 07:00] meloxicam 15 mg tablet (Mobic) 15 mg PO DAILY PRN PRN Pain 08/28/16 [History Last Taken Unknown] multivitamin with folic acid 400 mcg tablet (Thera) 1 tab PO DAILY 08/28/16 [History Last Taken 05/30/21] polyethylene glycol 3350 17 gram oral powder packet 17 g PO DAILY 08/28/16 [History Last Taken Unknown] losartan 25 mg tablet 25 mg PO QHS 05/31/21 [History Last Taken 05/31/21] magnesium 250 mg tablet 250 mg PO DAILY 07/27/22 [History Last Taken Unknown] melatonin 3 mg capsule 5 mg PO QHS 07/27/22 [History Last Taken Unknown] omega-3 fatty acids 1,250 mg capsule 1,250 mg PO DAILY 07/27/22 [History Last Taken Unknown] oxybutynin chloride 5 mg tablet 5 mg PO DAILY 07/27/22 [History Last Taken Unknown] glucosamine sulfate 500 mg tablet (Glucosamine) 500 mg PO DAILY 11/16/22 [History Last Taken Unknown] omeprazole 40 mg capsule,delayed release 40 mg PO BID #180 caps 12/07/22 [Rx Last Taken Unknown] sucralfate 100 mg/mL oral suspension 10 ml PO BID 30 days #600 mL 03/18/23 [Rx Last Taken Unknown] Allergy/AdvReac Type Severity Reaction Status Date / Time No Known Allergies Allergy Verified 07/05/23 21:34 Family History Mother Dementia Father Heart disease Surgical History H/O abdominal hysterectomy H/O hemorrhoidectomy History of appendectomy History of bladder surgery History of carpal tunnel surgery History of esophagogastroduodenoscopy (EGD) Hx of cholecystectomy Hx of colonoscopy Hx of hemorrhoidectomy Hx of tonsillectomy Social History household members: other details: Currently living with her daughter. Smoking Status: Former smoker how long ago did patient quit smoking: It several years prior, prior to this 1 pack/day since she been a teenager. alcohol intake: never substance use type: does not use ROS ROS ED Constitutional Constitutional ED: Denies chills or weight loss Eyes Eyes: Denies change in vision or diplopia ENT ENT ED: Denies ear pain, rhinorrhea or sore throat Cardiovascular Cardiovascular: Denies chest pain, orthopnea, palpitations or racing heartbeat Respiratory/Chest Respiratory/Chest: Denies cough, dyspnea or orthopnea Gastrointestinal Gastrointestinal: Denies abdominal pain, diarrhea, nausea or vomiting Genitourinary Genitourinary ED: Denies dysuria, hematuria or urinary frequency Musculoskeletal Musculoskeletal: Reports other Details: Right wrist pain ; Denies arthralgias, back pain, myalgias or neck pain Integumentary Denies abscess or rash Neurologic Neurologic: Denies headache(s) or weakness Psychiatric Psychiatric: Denies anxiety, depression, suicidal ideation or suicidal thoughts Endocrine Endocrinology: Denies polydipsia, polyphagia or polyuria Allergic/Immunologic Allergic/Immunologic ED: Denies mouth swelling, tongue swelling or urticaria EXAM Physical Exam Const Vital Signs: 07/05/23 21:34 07/05/23 23:30 07/05/23 23:35 Temperature 97.6 F L Temperature Source Temporal Pulse Rate 75 79 Respiratory Rate 18 18 Respiratory Effort Normal Non-Labored Respiratory Depth Normal Respiratory Pattern Normal Blood Pressure 182/101 H 159/72 H Blood Pressure Mean 128 101 Pulse Ox 98 92 Oxygen Delivery Method Room Air Room Air Room Air Positive well nourished and well developed General Appearance ED: well developed HEENT Reports normocephalic, head/scalp atraumatic and moist mucous membranes Eyes PERRL and EOMs intact bilaterally Neck no lymphadenopathy, supple and no JVD Resp normal respiratory effort and clear to auscultation bilaterally Cardio regular rate, regular rhythm and no murmurs GI normal to inspection, nondistended, normoactive bowel sounds and non-tender Palpation: soft Back/Spine no CVA tenderness and normal ROM Extremity Extremity Narrative: There is swelling tenderness and limited range of motion of the right wrist. Neurovascular intact. No obvious tendon deficit. Pain at the elbow or shoulder. General Extremety ED: Negative for edema General Extremity: Negative for edema Neuro oriented x3 and CN's II-XII intact bilaterally Sensorium / Orientation: alert Motor Exam: strength 5/5 throughout Psych mental status grossly normal Mood & Affect: Negative for depressed or tearful Skin no rashes or lesions noted and no wounds MDM MDM MDM Narrative Medical decision making narrative: My independent interpretation of the plain films of the right wrist is a distal comminuted intra-articular fracture of the distal radius. Patient received Tylenol and she did not wish anything stronger for pain. She was placed in anterior posterior plaster splint made by this physician well- padded. Neurovascular intact pre and post application. Patient will follow-up with orthopedics return if worsening or concerns Radiography Diagnostic Testing: Clinical Impression(s) from Imaging Studies Wrist X-Ray 07/05/23 22:25 IMPRESSION: Right distal radius fracture. Electronically Signed: John Ma MD at 23:38 EST , Discharge Plan Triage Chief Complaint: Upper Extremity Injury Other Complaint: Fall ED Provider: Darci Soliman Dx/Rx/DC Orders Clinical Impression: Closed fracture of distal end of radius, Fall Instructions: Wrist Fracture Prescriptions: No Action magnesium 250 mg tablet 250 mg PO DAILY omega-3 fatty acids 1,250 mg capsule 1,250 mg PO DAILY melatonin 3 mg capsule 5 mg PO QHS oxybutynin chloride 5 mg tablet 5 mg PO DAILY omeprazole 40 mg capsule,delayed release(DR/EC) 40 mg PO BID Qty: 180 3RF sucralfate 100 mg/mL suspension 10 ml PO BID 30 Days Qty: 600 3RF polyethylene glycol 3350 17 GM powder in packet 17 g PO DAILY meloxicam [Mobic] 15 MG tablet 15 mg PO DAILY PRN PRN (Reason: Pain) levothyroxine 88 MCG tablet 88 mcg PO DAILY aspirin 81 MG tablet,chewable 81 mg PO DAILY@0800 estradiol [Estrace] 0.5 MG tablet 0.5 mg PO DAILY multivitamin with folic acid [Thera] 1 TABLET tablet 1 tab PO DAILY losartan 25 mg tablet 25 mg PO QHS Patient Comments: TAKE 1 TABLET BY MOUTH EVERY DAY glucosamine sulfate [Glucosamine] 500 mg Tablet 500 mg PO DAILY Rx Instructions: administer with a meal Primary Care Provider: Ross Magallon Referrals: Ross Magallon DO [Primary Care Provider] - Deshawn Perez DO [Med Staff - Active Staff] - As soon as possible Disposition Disposition: Home, Self Care Discharge Date/Time: 07/06/23 00:00
== END 2023-07-06 | disposition home or self-care (01) ==
PROVIDERS: Emergency Provider Emergency Medicine; PCP Student in an Organized Health Care Education/Training Program; Visit Provider Emergency Medicine
DX: S52.571A Other intraarticular fracture of lower end of right radius, initial encounter for closed fracture (principal); I10 Essential (primary) hypertension; Z87.891 Personal history of nicotine dependence; E78.5 Hyperlipidemia, unspecified; W19.XXXA Unspecified fall, initial encounter
CPT/HCPCS: 29125; 73110; 99283

== ENCOUNTER 2024-10-27 15:25 | Emergency (ER) | payer MEDICARE, SELFPAY ==
[2024-10-27 15:25] VITALS: BP 164/85; PULSE 98; RESP 16; TEMP 36.4; O2SAT 98; BMI 26.2
--- NOTE | 2024-10-27 16:01 | VDLE_ITS ---
Reason For Study Reason For Study: Left leg swelling RIGHT LEFT CFV is compressible, spontaneous, phasic, competent GSV is normal. and demonstrates normal augmentation. CFV is compressible, spontaneous, phasic, competent, Procedure and demonstrates normal augmentation. This is a venous duplex using B-mode, color flow and FV is compressible, spontaneous, phasic, competent spectral Doppler. and demonstrates normal augmentation. Exam performed portable in ED. POP V is compressible, spontaneous, phasic, competent A preliminary report was called and/or faxed to and demonstrates normal augmentation. Amy. T/P Trunk is compressible. PTV is compressible. LT PerV is compressible. VL/Venous Duplex US, Unilateral Interpretation Summary Deep veins of the left lower extremity are patent and compressible segmentally. There is no evidence of left lower extremity deep vein thrombosis. Valvular competence appears intact within the p roximal deep venous system on the left . The left great saphenous vein appears patent and compressible segmentally. The right common femoral vein is patent and compressible . Ordering Physician: Austen Reyes Referring Physician: Ross Magallon Performed By: Brenda Pardo RVT
--- NOTE | 2024-10-27 16:01 | EX.ED.DYSGE1 ---
HPI History of Present Illness Chief Complaint: Edema [facility] Medical History Wears glasses Wears dentures Post-menopausal Arthritis Bladder disease Injury of head and neck History of ulceration Leg cramps History of echocardiogram Cardiology follow-up encounter Medial epicondylitis, left elbow DDD (degenerative disc disease) Hypothyroidism Constipation IBS (irritable bowel syndrome) Iron deficiency anemia Hiatal hernia Shoulder fracture, right HLD (hyperlipidemia) Benign neoplasm of stomach Epigastric pain Osteoporosis Former smoker TIA (transient ischemic attack) GERD (gastroesophageal reflux disease) Meniere's disease HTN (hypertension) Home Medications ?Medication ?Instructions ?Recorded ?Last Taken ?Type estradiol 0.5 mg tablet (Estrace) 0.5 mg PO DAILY 08/28/16 05/30/21 History meloxicam 15 mg tablet (Mobic) 15 mg PO DAILY PRN PRN Pain 08/28/16 Unknown History polyethylene glycol 3350 17 gram 17 g PO DAILY 08/28/16 Unknown History oral powder packet melatonin 3 mg capsule 5 mg PO QHS 07/27/22 Unknown History calcium carbonate (Calcium 600) 600 mg PO QDAY 10/10/24 Unknown History folic acid 1 mg tablet 1 mg PO QDAY 10/10/24 Unknown History levothyroxine 88 mcg tablet 125 mcg PO DAILY 10/10/24 Unknown History losartan 25 mg tablet 50 mg PO QHS 10/10/24 Unknown History memantine 7 mg capsule 7 mg PO QDAY 10/10/24 Unknown History sprinkle,extended release 24hr ondansetron HCl 8 mg tablet 8 mg PO Q12H PRN 10/10/24 Unknown History pantoprazole 40 mg tablet,delayed 40 mg PO BID 10/10/24 Unknown History release peg 3350-electrolytes 236 240 ml PO Q10M #4,000 mL 10/10/24 Unknown Rx gram-22.74 gram-6.74 gram-5.86 gram solution (Golytely) Allergy/AdvReac Type Severity Reaction Status Date / Time No Known Allergies Allergy Verified 10/27/24 15:27 Family History Mother Dementia Father Heart disease Surgical History History of esophagogastroduodenoscopy (EGD) Hx of colonoscopy Hx of hemorrhoidectomy H/O hemorrhoidectomy History of carpal tunnel surgery History of bladder surgery Hx of tonsillectomy Hx of cholecystectomy History of appendectomy H/O abdominal hysterectomy Social History household members: other details: Currently living with her daughter. Smoking Status: Former smoker how long ago did patient quit smoking: It several years prior, prior to this 1 pack/day since she been a teenager. alcohol intake: never substance use type: does not use EXAM Physical Exam Const Vital Signs: 10/27/24 15:25 10/27/24 16:25 Temperature 97.6 F L Temperature Source Oral Pulse Rate 98 Respiratory Rate 16 Respiratory Effort Normal Non-Labored Respiratory Pattern Normal Blood Pressure 164/85 H Blood Pressure Mean 111 Pulse Ox 98 Oxygen Delivery Method Room Air MDM MDM MDM Narrative Medical decision making narrative: HISTORY OF PRESENT ILLNESS: 79-year-old female presents with concern for left leg swelling. No she is currently on radiation for lung cancer. She notes she is underwent chemotherapy within the last 4 weeks. She also takes estradiol daily. Denies chest pain or shortness of breath. No syncope reported. REVIEW OF SYSTEMS: Pertinent positives: Leg Pertinent negatives: Chest pain, shortness breath, syncope PHYSICAL EXAM: Nursing triage notes reviewed, Vital signs reviewed Constitutional: please see mdm HENT: MMM Eyes: Pupils equal round and reactive to light, Extraocular muscles intact Neck: No stridor, no JVD, full neck ROM Lungs: Clear to auscultation, No wheezing or rales. No increased work of breathing, no conversational dyspnea, no accessory muscle use, no nasal flaring. No respiratory distress noted Heart: Regular rate and rhythm, No murmurs, No rubs and No gallops, 2+ distal pulses (radial, femoral, posterior tibial) in all extremities Abdomen: Soft, there is no tenderness, rigidity, rebound or guarding, no obvious peritoneal signs, no palpable pulsatile abdominal masses, no auscultated abdominal bruit : No CVAT Extremities: No obvious unilateral leg swelling edema or calf tenderness. Compartments are soft. Warm well-perfused, good capillary refill (2+) Neuro: No new focal neurological deficits, cranial nerves II through XII intact, 5/5 strength in all present extremities. Intact sensation to light touch in all present extremities, 2+ reflexes bilateral patella tendons. Skin: No rash or lesions noted MEDICAL DECISION MAKING: Chief Complaint: Leg swelling External records reviewed: Reviewed prior imaging studies Factors affecting care: Breast cancer, undergoing radiation and chemo Social determinants of health: none History obtained from others: none Consults: none MDM Narrative: Patient was initially hemodynamically stable, afebrile and nontoxic-appearing. Exam without obvious swelling or edema. I considered the following differential diagnosis: DVT, cellulitis ALL IMAGES (IF OBTAINED) HAVE BEEN PERSONALLY REVIEWED AND INTERPRETED BY MYSELF. DVT ultrasound was negative for acute DVT. No signs of cellulitis. No signs of arterial occlusion. No signs of compartment syndrome or necrotizing fasciitis. The etiology patient complaint remains unclear but it is unlikely be life-threatening given history, physical exam and imaging studies. The patient and/or family, caregivers express understanding. The patient and/or family, caregivers agrees with the plan. Shared decision making: I will have a discussion with the patient and or visitors regarding risk/benefits of further testing or admission. They will be made aware of of the risk/benefits inherent in this decision they will be given the opportunity to voice understanding. Total critical care time today provided was at least 0 minutes. This excludes separately billable procedures. Critical care time (if documented) is secondary to the patient having high probability of clinically significant/life threatening deterioration in the patient's condition which required my urgent intervention. Impression: 1. Left leg swelling 2. History of chemotherapy Dispo: Discharge home This note was generated with [employer] dictation software. It may contain incorrect words, spelling, and punctuation that were not noted in review of the chart prior to signing. Discharge Plan Triage Chief Complaint: Edema ED Provider: Austen Reyes Dx/Rx/DC Orders Clinical Impression: Left leg swelling Instructions: ED Peripheral Edema, Unilateral Prescriptions: No Action melatonin 3 mg capsule 5 mg PO QHS pantoprazole 40 mg tablet,delayed release (DR/EC) 40 mg PO BID calcium carbonate [Calcium 600] 600 mg calcium (1,500 mg) tablet 600 mg PO QDAY folic acid 1 mg tablet 1 mg PO QDAY memantine 7 mg capsule,sprinkle,ER 24hr 7 mg PO QDAY ondansetron HCl 8 mg tablet 8 mg PO Q12H PRN peg 3350-electrolytes [Golytely] 236-22.74-6.74 -5.86 gram recon soln 240 ml PO Q10M Qty: 4000 0RF Rx Instructions: as directed for split dose bowel prep polyethylene glycol 3350 17 GM powder in packet 17 g PO DAILY meloxicam [Mobic] 15 MG tablet 15 mg PO DAILY PRN PRN (Reason: Pain) estradiol [Estrace] 0.5 MG tablet 0.5 mg PO DAILY levothyroxine 88 mcg tablet 125 mcg PO DAILY losartan 25 mg tablet 50 mg PO QHS Patient Comments: TAKE 1 TABLET BY MOUTH EVERY DAY Primary Care Provider: Ross Magallon Referrals: Ross Magallon DO [Primary Care Provider] - Activity Restrictions/Additional Instructions: Thank you for trusting us with your care today! The ultrasound of your leg to rule out DVT was negative meaning we did not find signs of a deep vein thrombosis. The cause of your swelling is unclear but is unlikely be life-threatening given your imaging and physical exam Please take Tylenol (2 pills, 650 mg), ibuprofen (2 pills, 400 mg) every 6 hours as needed for pain and fever control. Please return to the emergency department if your symptoms change or worsen. Please follow with your primary care physician for further outpatient evaluation and management. Print Language: Liberian Disposition Disposition: Home, Self Care Discharge Date/Time: 10/27/24 17:37
== END 2024-10-27 17:37 | disposition home or self-care (01) ==
PROVIDERS: Emergency Provider Emergency Medicine; PCP Student in an Organized Health Care Education/Training Program; Referring Provider Emergency Medicine; Visit Provider Emergency Medicine
DX: M79.89 Other specified soft tissue disorders (principal); C34.90 Malignant neoplasm of unspecified part of unspecified bronchus or lung; C50.919 Malignant neoplasm of unspecified site of unspecified female breast; Z87.891 Personal history of nicotine dependence; I10 Essential (primary) hypertension; E78.5 Hyperlipidemia, unspecified; K21.9 Gastro-esophageal reflux disease without esophagitis; Z79.890 Hormone replacement therapy; E03.9 Hypothyroidism, unspecified
CPT/HCPCS: 93971; 99282

== ENCOUNTER 2024-12-15 12:04 | Emergency (ER) | payer MEDICARE, SELFPAY ==
[2024-12-15] VITALS (7 sets, daily range): BP systolic 124–164; BP diastolic 62–77; PULSE 87–93; RESP 12–18; TEMP 36.3–36.8; O2SAT 88–98; BMI 24.5
--- NOTE | 2024-12-15 12:21 | EX.ED.DYSGE1 ---
HPI History of Present Illness Chief Complaint: Lower Extremity Injury Detail of Chief Complaint: Atraumatic left hip pain Informant: patient Onset/Context/Timing Onset: Weeks Context: Gradual Onset Timing: Continuous Quality: Pain Location: Left inguinal area Current Severity: Mild Maximum Severity: Severe Worsened by: Attempt at weightbearing Relieved by: Nothing Associated Symptoms Associated Symptoms: History of non-small cell carcinoma with metastasis Narrative Narrative: Patient is 79-year-old woman. She has history of non-small cell carcinoma. She apparently has a mass in the left inguinal region. Her last ER visit was October 27 for leg swelling. DVT was ruled out. At that time she not complaining of hip pain. She did contact her oncologist Dr. Efrain Houser who recommended she come to the ER for evaluation of possible fracture. She denies radicular pain. Denies symptoms of claudication. Movement causes her pain. Patient denies GI or symptoms. Prior similar symptoms: Yes Recent Illness/Hospitalization: No PFSH PFSH Medical History Wears glasses Wears dentures Post-menopausal Arthritis Bladder disease Injury of head and neck History of ulceration Leg cramps History of echocardiogram Cardiology follow-up encounter Medial epicondylitis, left elbow DDD (degenerative disc disease) Hypothyroidism Constipation IBS (irritable bowel syndrome) Iron deficiency anemia Hiatal hernia Shoulder fracture, right HLD (hyperlipidemia) Benign neoplasm of stomach Epigastric pain Osteoporosis Former smoker TIA (transient ischemic attack) GERD (gastroesophageal reflux disease) Meniere's disease HTN (hypertension) Home Medications ?Medication ?Instructions ?Recorded ?Last Taken ?Type calcium carbonate (Calcium 600) 600 mg PO BID 10/10/24 12/15/24 History folic acid 1 mg tablet 1 mg PO DAILY 10/10/24 12/15/24 History memantine 7 mg capsule 7 mg PO DAILY 10/10/24 12/15/24 History sprinkle,extended release 24hr ondansetron HCl 8 mg tablet 8 mg PO Q12H PRN nausea and 10/10/24 Unknown History vomiting pantoprazole 40 mg tablet,delayed 40 mg PO BID 10/10/24 12/15/24 History release acetaminophen 500 mg tablet 1,000 mg PO Q6H PRN fever or pain 12/15/24 12/14/24 History albuterol sulfate 90 mcg/actuation 1 puff inhalation DAILY PRN 12/15/24 Unknown History aerosol inhaler bronchospasm fluticasone propionate 50 1 spray intranasal DAILY PRN 12/15/24 12/14/24 History mcg/actuation nasal allergy symptoms spray,suspension (24 Hour Allergy Relief) hydrocodone-acetaminophen 5-325mg 1 tab PO TID PRN pain 12/15/24 12/15/24 History 5mg-325mg levothyroxine 175 mcg tablet 175 mcg PO DAILY 12/15/24 12/15/24 History losartan 50 mg tablet 50 mg PO DAILY 12/15/24 12/15/24 History melatonin 5 mg tablet 5 mg PO QHS 12/15/24 12/14/24 History naproxen 500 mg tablet 500 mg PO BID 12/15/24 12/15/24 History polyethylene glycol 3350 17 17 g PO DAILY 12/15/24 12/14/24 History gram/dose oral powder (ClearLax) umeclidinium 62.5 mcg/actuation 1 inh inhalation DAILY 12/15/24 12/14/24 History blister powder for inhalation (Incruse Ellipta) Allergy/AdvReac Type Severity Reaction Status Date / Time No Known Allergies Allergy Verified 12/15/24 12:05 Family History Mother Dementia Father Heart disease Surgical History History of esophagogastroduodenoscopy (EGD) Hx of colonoscopy Hx of hemorrhoidectomy H/O hemorrhoidectomy History of carpal tunnel surgery History of bladder surgery Hx of tonsillectomy Hx of cholecystectomy History of appendectomy H/O abdominal hysterectomy Social History household members: other details: Currently living with her daughter. Smoking Status: Former smoker how long ago did patient quit smoking: It several years prior, prior to this 1 pack/day since she been a teenager. alcohol intake: never substance use type: does not use ROS ROS ED Constitutional Constitutional ED: Reports weight loss; Denies chills, fever(s), subjective or sweats Musculoskeletal Musculoskeletal: Reports other Details: Pain left inguinal area and unable to bear weight ; Denies arthralgias or myalgias Integumentary Denies abscess, Abrasions or rash Neurologic Neurologic: Denies paresthesias or weakness Hematologic/Lymphatic Hematologic/Lymphatic: Reports systems reviewed and no addt'l complaints, except as documented EXAM Physical Exam Const Vital Signs: 12/15/24 12:05 12/15/24 14:06 12/15/24 15:52 Temperature 98.3 F Temperature Source Oral Pulse Rate 93 87 89 Respiratory Rate 16 18 17 Blood Pressure 132/63 H 124/72 H 145/62 H Blood Pressure Mean 86 89 89 Pulse Ox 98 97 95 Oxygen Delivery Method Room Air Room Air Room Air Positive well nourished and well developed Constitutional Narrative: Patient appears uncomfortable. Slightest bit of movement causes her pain in the left hip area which she localizes to the left inguinal area. General Appearance ED: well developed and pallor HEENT Reports moist mucous membranes HEENT Narrative: HEENT exam is remarkable for alopecia. Ears normal. Nares patent. Eyes PERRL and EOMs intact bilaterally General Eye ED: Negative for scleral icterus Resp normal respiratory effort Cardio regular rate and regular rhythm GI GI Narrative: Abdomen is soft nontender. There is no palpable sternal mass. Extremity normal to inspection Extremity Narrative: Patient had difficulty straighten out her leg. Negative pain with logrolling. No neurovascular compromise. Prior to performing Kartik Donato 4 test for weightbearing we will obtain three-view x-ray of the left hip to evaluate for pathologic fracture. Neuro oriented x3 and CN's II-XII intact bilaterally Sensorium / Orientation: alert Psych mental status grossly normal Skin General Skin Exam: pallor MDM MDM MDM Narrative Medical decision making narrative: In light of the fact that she has history of tumor in that region has atraumatic pain that is worse with weightbearing need to evaluate for occult/pathologic fracture. Will start with x-rays. If x-rays are negative will order CAT scan. Patient was seen October 27 for leg swelling. Cause of her leg swelling was undetermined. Prior to that she was seen June 2023 for fracture of her distal radius. History & Record Review Additional record(s) reviewed:: Prior outpatient record (GI notes from November 2021 reviewed. Patient was diagnosed with GERD.) and Prior ED visit Lab Data Attestation: I reviewed the patient's lab results. Lab results narrative: CBC reveals mild anemia. Most recent CBC available at [facility] is May 2021. Her H&H at that time was 12.6 and 37.6. Competence of metabolic panel reveals slight elevation of BUN/creatinine ratio. He is decompressed metabolic panel is otherwise normal. Labs: Laboratory Results - last 24 hr 12/15/24 14:45 WBC 10.9 RBC 3.28 L Hgb 10.4 L Hct 31.8 L MCV 97.0 MCH 31.7 MCHC 32.7 RDW Std Deviation 58.7 H RDW Coeff of Tyrone 16.8 H Plt Count 388 MPV 10.2 Immature Gran % (Auto) 1.100 H Neut % (Auto) 72.6 H Lymph % (Auto) 15.9 L [place] % (Auto) 9.6 Eos % (Auto) 0.4 Baso % (Auto) 0.4 Absolute Neuts (auto) 7.9 H Absolute Lymphs (auto) 1.73 Nucleated RBC % 0 Sodium 135 Potassium 4.5 Chloride 101 Carbon Dioxide 21.2 Anion Gap 12 BUN 15 Creatinine 0.74 Estim Creat Clear Calc 49.24 L Est GFR (MDRD) Non-Af 83 BUN/Creatinine Ratio 20.1 H Glucose 96 Calcium 8.9 Total Bilirubin 0.26 AST 28 ALT < 5 Alkaline Phosphatase 106 H Total Protein 6.5 Albumin 3.2 L Globulin 3.3 Albumin/Globulin Ratio 1.0 Radiography Chest X-Ray - ED: Read by ED Physician (Three-view x-ray of the hip reveals no obvious fracture, there is minimal arthritic changes. There is no blastic lesions noted. There are radiolucent lesions noted right and left femoral neck. Will obtain CT to evaluate for fracture.) Diagnostic Testing: Clinical Impression(s) from Imaging Studies Hip/Pelvis X-Ray 12/15/24 12:50 IMPRESSION: No acute osseous abnormalities. Subtle areas of her fraction in both femoral necks. Can not exclude metastatic disease. Reading Location: [facility] Lower Extremity CT 12/15/24 13:03 IMPRESSION: Lytic lesions in the posterior aspect of the left iliac bone with soft tissue prominence and bony destruction as well as a lytic lesion in the anterior region of the left femoral neck extending into the intertrochanteric region. Metastatic deposit should be ruled out. Reading Location: [facility] Management Discussion w/another healthcare provider: [employer] (Spoke with Dr. Hitesh Weaver. He reviewed the films. He believes patient has a subtle subcapital fracture besides the lytic lesions. He also noted there was lytic lesions on the right side. He recommended that I speak with Dr. Bob Sutherland. The transfer line at [facility] was contacted), Radiologist (Spoke with radiation oncologist Dr. Spring. He was made aware of patient.) and Other (Spoke with transfer center nurse. She informing that Dr. Sutherland is in the OR. Images were sent for his review. He will call back once he is available.) Treatment and Re-Evaluation :: I was asked by nurse at 1532 patient could have more pain medicine. Additional dose of morphine was ordered. Patient was made aware that we are waiting for callback. She was made aware that she will require transfer. [employer] called [facility] transfer line at approximately [phone]. They are still awaiting callback from Dr. Sutherland. They did contact the residents to try to expedite transfer. Comments:: Patient was discussed with Dr. Bob Sutherland at 1432. He excepted patient. Patient be a direct admit to his service Discharge Plan Triage Chief Complaint: Lower Extremity Injury ED Provider: Demetrio Samuels Dx/Rx/DC Orders Clinical Impression: Pathologic fracture of neck of left femur, Non-small cell lung cancer with metastasis, Inability to ambulate due to hip Prescriptions: No Action pantoprazole 40 mg tablet,delayed release (DR/EC) 40 mg PO BID calcium carbonate [Calcium 600] 600 mg calcium (1,500 mg) tablet 600 mg PO BID folic acid 1 mg tablet 1 mg PO DAILY memantine 7 mg capsule,sprinkle,ER 24hr 7 mg PO DAILY ondansetron HCl 8 mg tablet 8 mg PO Q12H PRN (Reason: nausea and vomiting) levothyroxine 175 mcg tablet 175 mcg PO DAILY losartan 50 mg tablet 50 mg PO DAILY melatonin 5 mg tablet 5 mg PO QHS albuterol sulfate 90 mcg/actuation HFA aerosol inhaler 1 puff inhalation DAILY PRN (Reason: bronchospasm) hydrocodone-acetaminophen 5-325 mg tablet 1 tab PO TID PRN (Reason: pain) naproxen 500 mg tablet 500 mg PO BID Incruse Ellipta 62.5 mcg/actuation blister with device 1 inh inhalation DAILY fluticasone propionate [24 Hour Allergy Relief] 50 mcg/actuation spray,suspension 1 spray intranasal DAILY PRN (Reason: allergy symptoms) Rx Instructions: administer into each nostril acetaminophen 500 mg tablet 1,000 mg PO Q6H PRN (Reason: fever or pain) polyethylene glycol 3350 [ClearLax] 17 gram/dose powder 17 g PO DAILY Primary Care Provider: Ross Magallon Referrals: Ross Magallon DO [Primary Care Provider] - Print Language: Azeri Disposition Disposition: Acute Care Hospital Discharge Location: [facility]
[2024-12-15] MEDS: Ondansetron 4 MG/2 ML Vial IV (12:42)
[2024-12-15] MEDS: Morphine 4 MG/ML Syringe IV ×2 (12:42→18:13)
--- NOTE | 2024-12-15 12:50 | RAD_ITS ---
PROCEDURE: LEFT HIP, UNI W/ PELVIS 2-3 VIEWS 12/15/2024 REASON FOR EXAM: Severe pain. No injury. TECHNIQUE: Three (3) view of the left hip COMPARISON: No relevant prior FINDINGS: Bones: No fractures are identified. Subtle areas of rare fraction are noted in both femoral necks. Joints: No subluxations or dislocations. Soft tissues: Unremarkable. RAD/HIP, UNI W/ Pelvis 2-3 Views IMPRESSION: No acute osseous abnormalities. Subtle areas of her fraction in both femoral necks. Can not exclude metastatic disease. Reading Location: [facility]
--- NOTE | 2024-12-15 13:03 | CT_ITS ---
PROCEDURE: EXTREMITY LOWER WITHOUT CONTRA 12/15/2024 REASON FOR EXAM: UNABLE TO BEAR WEIGHT, HISTORY OF METASTATIC CANCE TECHNIQUE: Axial CT images of the left hip obtained without intravenous contrast. Coronal and Sagittal reconstruction series were provided. One or more dose reduction techniques were used (e.g., Automated exposure control, adjustment of the mA and/or kV according to patient size, use of iterative reconstruction technique). RADIATION DOSE SUMMARY: CTDlvol: 14.98 mGy DLP: 501.24 mGycm COMPARISON: Prior radiographs of the left hip done earlier in the day. FINDINGS: Bones: There is a 2.6 cm x 3.5 cm x 2.8 cm lytic lesion in the posterior left iliac bone with soft tissue prominence and bony destruction. A metastatic deposit or myeloma should be ruled out. There is also evidence of a 2.3 cm x by 1.4 cm 1.9 cm lytic lesion in the anterior aspect of the proximal left femoral neck extending into the anterior intertrochanteric region of the proximal right femur. A metastatic deposit should be ruled out. Joints: Moderate degree of joint space narrowing of the hip joint. Soft Tissues: Soft tissue swelling. CT/Extremity Lower without Contra IMPRESSION: Lytic lesions in the posterior aspect of the left iliac bone with soft tissue p rominence and bony destruction as well as a lytic lesion in the anterior region of the left femoral neck extending into the inter trochanteric region. Metastatic deposit should be ruled out. Reading Location: [place] [id number]
[2024-12-15 14:56] LABS: Absolute Lymphocyte Count 1.73 X10^3/uL (0.83-4.51); Absolute Neutrophil Count 7.9 X10^3/uL (2.0-7.7); Basophil# 0.04 X10^3/uL; Basophil% 0.4 % (0-1); Eosinophil# 0.04 X10^3/uL; Eosinophils% 0.4 % (0-5); Hematocrit 31.8 % (37-47); Hemoglobin 10.4 g/dL (12.0-15.0); Lymphocyte # 1.73 X10^3/ul (0.83-4.51); Lymphocyte % 15.9 % (19-41); Mean Corp Hgb Conc 32.7 g/dL (32-36); Mean Corpuscular Hgb 31.7 pg (27.0-32.0); Mean Platelet Vol. 10.2 fl (6.2-12.0); Monocyte# 1.04 X10^3/uL; Monocyte% 9.6 % (0-10); NRBC Flagged by Analyzer 0 % (0-5); Neutrophil # 7.89 X10^3/uL (2.7-7.7); Neutrophil % 72.6 % (47-70); Platelet Count 388 K/mm3 (150-450); RBC Distribution Width CV 16.8 % (11.6-14.6); RBC Distribution Width SD 58.7 fl (35.1-43.9); Red Blood Count 3.28 M/mm3 (4.2-5.4); White Blood Count 10.9 K/mm3 (4.4-11.0)
[2024-12-15 15:21] LABS: AST(SGOT) 28 U/L (<=31); Alanine Aminotransfer ALT/SGPT < 5 U/L (<=34); Albumin, Serum 3.2 g/dL (3.4-4.8); Alkaline Phosphatase 106 U/L (35-104); Anion Gap 12 (5-15); BUN 15 mg/dL (4-19); BUN/Creat Ratio 20.1 RATIO (10-20); Calcium,Total 8.9 mg/dL (7.6-11.0); Carbon Dioxide 21.2 mmol/L (21.0-32.0); Chloride 101 mmol/L (98-108); Creatinine, Serum 0.74 mg/dL (0.70-1.20); EST Glomerular Filtration Rate 83 (>60); Estimated Creatinine Clearance 49.24 ml/min (50-250); Globulin 3.3 g/dL (2.2-4.2); Glucose 96 mg/dL (70-99); Potassium 4.5 mmol/L (3.3-5.1); Protein, Total 6.5 g/dL (5.9-8.4); Sodium Level 135 mmol/L (133-145); Total Bilirubin 0.26 mg/dL (0.00-1.30)
[2024-12-15] MEDS: Morphine 2 MG/ML Syringe IV (15:50)
--- NOTE | 2024-12-15 19:00 | ED.RN ---
This RN called report to Dana RIOS at [facility].
== END 2024-12-15 19:01 | disposition short-term general hospital (02) ==
PROVIDERS: Emergency Provider Emergency Medicine; PCP Student in an Organized Health Care Education/Training Program; Visit Provider Emergency Medicine
DX: M84.552A Pathological fracture in neoplastic disease, left femur, initial encounter for fracture (principal); C79.89 Secondary malignant neoplasm of other specified sites; C34.90 Malignant neoplasm of unspecified part of unspecified bronchus or lung; E78.5 Hyperlipidemia, unspecified; R26.2 Difficulty in walking, not elsewhere classified; K21.9 Gastro-esophageal reflux disease without esophagitis; R19.09 Other intra-abdominal and pelvic swelling, mass and lump; Z87.891 Personal history of nicotine dependence; I10 Essential (primary) hypertension; Z79.899 Other long term (current) drug therapy; Z79.890 Hormone replacement therapy; Z79.51 Long term (current) use of inhaled steroids; E03.9 Hypothyroidism, unspecified
CPT/HCPCS: 73502; 73700; 80053; 85025; 96374; 96375; 96376; 99284; A4216; J2405

== ENCOUNTER 2024-12-22 14:20 | Inpatient (IN) | payer MEDICARE, SELFPAY ==
--- NOTE | 2024-12-22 08:23 | EKG12_ITS ---
Test Reason : CP Blood Pressure : */* mmHG Vent. Rate : 107 BPM Atrial Rate : 416 BPM P-R Int : * ms QRS Dur : 80 ms QT Int : 322 ms P-R-T Axes : * 17 17 degrees QTcB Int : 429 ms Atrial fibrillation Abnormal ECG Confirmed by JOMAR BOWMAN, CONRADO ([id number]), health editor WARREN LO ([id number]) on 12/29/2024 12:37:36 PM Referred By: Carlos Rosas Confirmed By: CONRADO HADLEY MD
[2024-12-22 14:37] VITALS: BP 113/62; PULSE 90; RESP 16; TEMP 36.1; O2SAT 95; BMI 24.7
[2024-12-22] MEDS: oxyCODONE 5 MG Tablet 10 MG PO ×2 (14:39→21:28)
[2024-12-22 15:48] VITALS: PULSE 87; RESP 16; O2SAT 96
--- NOTE | 2024-12-22 16:13 | HP.PCM_ITS ---
HPI - General General Date of Admission: 12/22/24 Date of Service: 12/22/24 Chief Complaint: Here for rehabilitation. HPI Narrative ROSE PEDROZA, is a 79 Female who presents with followin12/15/2024 [facility] ED atraumatic left hip pain. History of metastatic lung cancer, Dr. Houser treated her recently. X-ray left hip, CT left hip showed subtle fracture, lytic lesions. Transfer to [facility]. 12/15/2024 Admit [facility]. Lung cancer metastatic to left hip, was supposed to receive radiation treatment, but left hip pain unbearable. Prepare for surgery with Dr. Diallo. Plan for OR 12/19/2024. 12/19/2024 Dr. Diallo performed cephalomedullary nailing of left pathologic femoral neck fracture. 12/20/2024 No acute events overnight, left hip soreness, walked with PT. Hemoglobin 8.8. Atrial flutter with RVR, Metoprolol 25mg bid started. Anticoagulation contraindicated due to metastatic lung cancer to brain, high risk of intracranial bleeding. Lasix IV for pulmonary congestion. Nephrology treated hyponatremia. 12/22/2024 PT/OT SNF. 12/22/2024 Admit to TCU with debility, here for rehabilitation, strengthening, prior to discharge home alone. [facility] Medical History (Updated 12/22/24 @ 16:[address] Carlos Rosas MD) Wears glasses Wears dentures Post-menopausal Arthritis Bladder disease Injury of head and neck History of ulceration Leg cramps History of echocardiogram Cardiology follow-up encounter Medial epicondylitis, left elbow DDD (degenerative disc disease) Hypothyroidism Constipation IBS (irritable bowel syndrome) Iron deficiency anemia Hiatal hernia Shoulder fracture, right HLD (hyperlipidemia) Benign neoplasm of stomach Epigastric pain Osteoporosis Former smoker TIA (transient ischemic attack) GERD (gastroesophageal reflux disease) Meniere's disease HTN (hypertension) Home Medications ?Medication ?Instructions ?Recorded ?Last Taken ?Type calcium carbonate (Calcium 600) 600 mg PO BID suppleme nt 10/10/24 12/15/24 History folic acid 1 mg tablet 1 mg PO DAILY supplement 12/15/24 History memantine 7 mg capsule 7 mg PO BID cognition 12/15/24 History sprinkle,extended release 24hr ondansetron HCl 8 mg tablet 8 mg PO Q8H PRN PRN nausea and 10/10/24 Unknown History vomiting pantoprazole 40 mg tablet,delayed 40 mg PO DAILY reflu x 10/10/24 12/15/24 History release acetaminophen 500 mg tablet 1,000 mg PO Q6H PRN fever or pain 12/15/24 12/14/24 History albuterol sulfate 90 mcg/actuation 2 puff inhalation Q 6H PRN wheezing 12/15/24 Unknown History aerosol inhaler fluticasone propionate 50 1 spray intranasal DAILY PRN 12/15/24 12/14/24 History mcg/actuation nasal allergy symptoms spray,suspension (24 Hour Allergy Relief) hydrocodone-acetaminophen 5-325mg 1 tab PO TID PRN landry n 12/15/24 12/15/24 History 5mg-325mg levothyroxine 175 mcg tablet 25 mcg PO DAILY thyroid 0 12/15/24 12/15/24 History losartan 50 mg tablet 50 mg PO DAILY BP 12/15/24 0 12/15/24 History melatonin 5 mg tablet 5 mg PO QHS sleep 12/15/24 0 12/14/24 History naproxen 500 mg tablet 500 mg PO BID pain 12/15/24 12/15/24 History polyethylene glycol 3350 17 17 g PO DAILY 12/15/24 History gram/dose oral powder (ClearLax) umeclidinium 62.5 mcg/actuation 1 inh inhalation DAILY breathing 12/15/24 12/14/24 History blister powder for inhalation (Incruse Ellipta) meloxicam 15 mg tablet 15 mg PO DAILY pain 12/22/24 Unknown History Allergy/AdvReac Type Severity Reaction Status Date / Time No Known Allergies Allergy Verified 12/15/24 12:05 Family History Mother Dementia Father Heart disease Surgical History History of esophagogastroduodenoscopy (EGD) Hx of colonoscopy Hx of hemorrhoidectomy H/O hemorrhoidectomy History of carpal tunnel surgery History of bladder surgery Hx of tonsillectomy Hx of cholecystectomy History of appendectomy H/O abdominal hysterectomy Social History (Updated 12/22/24 @ 16:[address] Carlos Rosas MD) household members: none and other details: Daughter lives [place] [address] away in [place], [place]. Smoking Status: Former smoker how long ago did patient quit smoking: It several years prior, prior to this 1 pack/day since she been a teenager. alcohol intake: never substance use type: does not use ROS Constitutional Constitutional: Reports weakness; Denies chills, fever(s) or weight gain ENT HEENT: Denies headache(s), nasal congestion or nasal discharge Cardiovascular Cardiovascular: Denies chest pain or palpitations Respiratory/Chest Respiratory/Chest: Denies cough, excessive phlegm production or shortness of breath with exertion Gastrointestinal Gastrointestinal: Denies abdominal pain, nausea or vomiting Genitourinary Genitourinary: Denies dysuria Musculoskeletal Musculoskeletal: Reports joint pain; Denies joint swelling Integumentary Integumentary: Denies rash or wounds Neurologic Neurologic: Denies focal weakness, numbness or tingling Psychiatric Psychiatric: Denies anxiety, auditory hallucinations, depression, homicidal ideation or suicidal ideation Vital Signs Vital Signs Vital Signs: 12/22/24 14:37 12/22/24 15:48 Temperature 96.9 F L Temperature Source Temporal Pulse Rate 90 87 Pulse Rhythm Regular Pulse Strength Normal (2+) Respiratory Rate 16 16 Respiratory Effort Normal Non-Labored Respiratory Depth Normal Respiratory Pattern Normal Blood Pressure 113/62 Blood Pressure Mean 79 Blood Pressure Source Monitor Blood Pressure Position Semi-Fowlers Blood Pressure Location Right Arm Pulse Ox 95 96 Oxygen Delivery Method Room Air Nasal Cannula Oxygen Flow Rate (L/min) 3 Weight Weight: 65.317 kg Body Mass Index (BMI) 24.7 Physical Exam Const alert General Appearance: cooperative HEENT normocephalic Eyes PERRL and EOMs intact bilaterally Neck supple, no JVD and no carotid bruits Resp normal respiratory effort, normal air movement and clear to auscultation bilaterally Cardio regular rate and regular rhythm GI normal to inspection, nondistended, normoactive bowel sounds, non-tender and non-distended Extremity normal capillary refill General Extremity: Negative for edema Skin no rashes or lesions noted General Skin Exam: no breakdown Psych affect normal Appearance: appropriate Results Medical Records Data Medical Nutrition Assessment Dietitian: Malnutrition Criteria Met Start: 12/22/24 16:10 Freq: Status: Active Protocol: Document 12/22/24 16:10 SLA (Rec: 12/22/24 16:10 SLA [id number]) Nutrition Malnutrition Evidence of Yes Malnutrition Exists Malnutrition (severe Acute Illness/Injury ): Evidenced By Suboptimal Energy Intake (Severe),Weight Loss (Severe) Clinical Problem Acute Disease or Injury Related Malnutrition Etiology related to taste changes, no appetite and inadequate energy intake Signs/Symptoms as evidenced by unplanned wt loss of 17.9% and poor po intake x 2 months travel pta. Status Active Problem Recommendation Dietitian Will change diet to liberal Regular d/t signs and Recommendations/ symptoms of malnutrition Changes Will order 8 oz chocolate ensure plus high protein tid w/ meals per res preference Rec consider appetite stimulant to help encourage increased po intake. Assessment & Plan Assessment/Plan (1) Debility: (2) Pathologic fracture of neck of left femur: (3) Atrial flutter with rapid ventricular response: (4) Hyponatremia: (5) Non-small cell lung cancer (NSCLC): (6) Metastasis to brain: (7) Dementia, unspecified, without behavioral disturbance: (8) Barretts esophagus: (9) COPD (chronic obstructive pulmonary disease): (10) Hypothyroidism: (11) Essential (primary) hypertension: PLAN: Plan 79 year old female with below past medical history hospitalized for left pathologic femoral neck fracture 2/2 lung cancer mets, underwent cephalomedullary nailing 12/19/[address] Diallo, postoperative course complicated by hyponatremia, atrial flutter with rapid ventricular response, acute blood loss anemia, admitted to TCU with debility, here for rehabilitation, strengthening, prior to discharge home alone. * Debility - PT/OT. * Pain - Tylenol 1000mg q8, Tramadol 50mg q6 prn pain (1-3), Oxycodone 10mg q4 prn pain (4-5), Morphine 10mg po/sl q4 prn pain (6-10). * Bowel - Miralax 17gm daily, senna/colace 2 tablets bid, Magnesium citrate 300mL daily prn. * Adult immunization - Administer pneumonia vaccine, covid vaccine, flu vaccine as appropriate. * DVT prophylaxis - Hold, brain mets high risk for intracranial bleeding. * Nausea - Zofran 8mg q8 prn nausea/vomiting. * COPD - Incruse 1 puff daily, Albuterol 2 puffs q6 prn. * Zee esophagus - Pantoprazole 40mg daily, TUMS 500mg daily. * Folate deficiency - Folic acid 1mg daily. * Hypothyroidism - Levothyroxine 175mcg daily. * Hypertension - Losartan 50mg daily. * Insomnia - Melatonin 5mg qhs. * Dementia NOS - Memantine 5mg bid. * Dry eyes - Artificial teras 2gtt ou q6h prn.
[2024-12-22] MEDS: morphine (oral solution) 10MG/0.5ML Syringe 10 MG SL/PO (17:56)
[2024-12-22] MEDS: Acetaminophen 500 MG Tablet 1000 MG PO (21:29)
[2024-12-22] MEDS: MELATONIN 10 MG TABLET 5 MG PO (21:30)
[2024-12-22] MEDS: Senna/Docusate Sodium 1 Tablet 2 TABLET PO (21:30)
[2024-12-22] MEDS: Memantine Hydrochloride 5 MG Tablet PO (21:30)
[2024-12-23] MEDS: oxyCODONE 5 MG Tablet 10 MG PO ×3 (02:42→21:09)
[2024-12-23] MEDS: Acetaminophen 500 MG Tablet 1000 MG PO ×3 (05:23→21:10)
[2024-12-23] MEDS: Levothyroxine 175 MCG Tablet PO (05:23)
[2024-12-23] MEDS: morphine (oral solution) 10MG/0.5ML Syringe 10 MG SL/PO ×2 (05:31→23:42)
[2024-12-23 06:33] LABS: Absolute Lymphocyte Count 1.47 X10^3/uL (0.83-4.51); Absolute Neutrophil Count 15.2 X10^3/uL (2.0-7.7); Basophil# 0.01 X10^3/uL; Basophil% 0.1 % (0-1); Eosinophil# 0.04 X10^3/uL; Eosinophils% 0.2 % (0-5); Hematocrit 26.5 % (37-47); Hemoglobin 8.6 g/dL (12.0-15.0); Lymphocyte # 1.47 X10^3/ul (0.83-4.51); Lymphocyte % 8.2 % (19-41); Mean Corp Hgb Conc 32.5 g/dL (32-36); Mean Corpuscular Hgb 31.5 pg (27.0-32.0); Mean Corpuscular Volume 97.1 fL (81-99); Mean Platelet Vol. 10.8 fl (6.2-12.0); Monocyte# 1.13 X10^3/uL; Monocyte% 6.3 % (0-10); NRBC Flagged by Analyzer 0 % (0-5); Neutrophil # 15.21 X10^3/uL (2.7-7.7); Neutrophil % 84.3 % (47-70); Platelet Count 317 K/mm3 (150-450); RBC Distribution Width CV 16.8 % (11.6-14.6); RBC Distribution Width SD 59.3 fl (35.1-43.9); Red Blood Count 2.73 M/mm3 (4.2-5.4)
[2024-12-23 07:00] VITALS: O2SAT 94
[2024-12-23 07:06] LABS: Anion Gap 12 (5-15); BUN 37 mg/dL (4-19); BUN/Creat Ratio 55.6 RATIO (10-20); Chloride 96 mmol/L (98-108); Creatinine, Serum 0.67 mg/dL (0.70-1.20); EST Glomerular Filtration Rate 89 (>60); Estimated Creatinine Clearance 49.24 ml/min (50-250); Glucose 131 mg/dL (70-99); Potassium 3.9 mmol/L (3.3-5.1); Sodium Level 134 mmol/L (133-145)
[2024-12-23] MEDS: Pantoprazole Sodium 40 MG Tablet PO (09:10)
[2024-12-23] MEDS: Umeclidinium Bromide Inhaler 1 PUFF INHALATION (09:10)
[2024-12-23] MEDS: Polyethylene Glycol 3350 17 GM PACKET PO (09:10)
[2024-12-23] MEDS: Senna/Docusate Sodium 1 Tablet 2 TABLET PO ×2 (09:10→21:10)
[2024-12-23] MEDS: Memantine Hydrochloride 5 MG Tablet PO ×2 (09:10→21:10)
[2024-12-23] MEDS: Calcium Carbonate 500 MG Tablet PO (09:10)
[2024-12-23] MEDS: Folic Acid 1 MG Tablet PO (09:11)
--- NOTE | 2024-12-23 09:45 | NURSING ---
Pt WBC Count increased from 10.9 to 18 noted to have crackles in right middle and lower lungs. No other Signs or symptoms of infection. Vitals BP 99/60 [address] Rosas updated N.O. received for Resp. panel, Covid swab, Chest X-ray, Sputum culture if able to collect. orders read back. Also, updated Dr. Rosas on Hgb of 8.6 N.O. For Occult stool, Ferritin, Iron, and TIBC labs Orders read back.
[2024-12-23] MEDS: Tuberculin,Purif.prot.deriv. 50 TU/ML Vial 0.1 ML ID (10:39)
--- NOTE | 2024-12-23 11:35 | RAD_ITS ---
PROCEDURE: CHEST PA AND LATERAL 12/23/2024 REASON FOR EXAM: INCRASED WBC ADVENTIOUS LUNG SOUNDS TECHNIQUE: Frontal and lateral views of the chest. COMPARISON: 05/31/2021 FINDINGS: Hardware: None Heart: The heart size is normal. Mediastinum: Large hiatal hernia. Lungs: Alveolar opacity in the lower right lung consistent with right lower lobe pneumonia. Bones: The bones are unremarkable. RAD/Chest PA and Lateral IMPRESSION: Right lower lobe pneumonia. Reading Location: [id number]
[2024-12-23 11:50] LABS: Ferritin 630 ng/mL (22-378); Iron 28 ug/dL (50-170); Iron Binding Capacity,Unsat 157 ug/dL (228-428)
[2024-12-23 12:07] LABS: Iron Binding Capacity,Total 185 ug/dL (250-450); PERCENT IRON SATURATION 15.1 % (13-59)
--- NOTE | 2024-12-23 12:19 | NURSING ---
Dr. Rosas updated on Chest X-ray. N.O. Received for Cefdinir 300mg bid for 7 days and Z-pack start now. Orders read back. Also, updated on Iron labs and N.O. received for Ferrex 150mg daily and 500mg of Vitamin C daily to be taken same time as Ferrex. Orders read back.
[2024-12-23] MEDS: Azithromycin 250 MG Tablet 500 MG PO (13:19)
[2024-12-23] MEDS: Cefdinir 300 MG Capsule PO ×2 (13:19→21:10)
[2024-12-23 13:54] VITALS: BP 111/59; PULSE 101; RESP 18; TEMP 35.9; O2SAT 98
--- NOTE | 2024-12-23 15:36 | NURSING ---
Addendum entered by Jory Mcmahon 12/23/24 16:42: This nurse called and updated Daughter Martha. Original Note: Pt C/O of chest pain EKG completed and Dr. Rosas updated. N.O. received for Cardiac enzymes and Maalox 30 ml x1 dose now. Orders read back. Pharmacy does not carry Maalox spoke with pharmacy and interchanged with Mylanta.
[2024-12-23] MEDS: Mag Hydrox/Al Hydrox/Simeth 30 ML UDC PO (15:45)
[2024-12-23 15:54] LABS: Troponin T High Sensitivity 22 ng/L (<=14)
[2024-12-23 17:45] LABS: Troponin T High Sens 2 HR 27 ng/L (<=14)
[2024-12-23 19:53] LABS: Troponin T High Sens 4 HR 24 ng/L (<=14)
[2024-12-23] MEDS: MELATONIN 10 MG TABLET 5 MG PO (21:10)
[2024-12-24] MEDS: oxyCODONE 5 MG Tablet 10 MG PO ×3 (03:35→20:53)
[2024-12-24] MEDS: Levothyroxine 175 MCG Tablet PO (05:30)
[2024-12-24] MEDS: Acetaminophen 500 MG Tablet 1000 MG PO ×3 (05:30→20:54)
[2024-12-24] MEDS: morphine (oral solution) 10MG/0.5ML Syringe 10 MG SL/PO ×2 (05:32→18:49)
[2024-12-24] MEDS: traMADol 50 MG Tablet PO ×2 (08:16→22:29)
[2024-12-24] MEDS: Polyethylene Glycol 3350 17 GM PACKET PO (08:18)
[2024-12-24] MEDS: Azithromycin 250 MG Tablet PO (08:21)
[2024-12-24] MEDS: Ascorbic Acid 500 MG Tablet PO (08:21)
[2024-12-24] MEDS: Calcium Carbonate 500 MG Tablet PO ×2 (08:21)
[2024-12-24] MEDS: Senna/Docusate Sodium 1 Tablet 2 TABLET PO ×2 (08:21→20:54)
[2024-12-24] MEDS: Cefdinir 300 MG Capsule PO ×2 (08:21→20:53)
[2024-12-24] MEDS: Folic Acid 1 MG Tablet PO (08:21)
[2024-12-24] MEDS: Pantoprazole Sodium 40 MG Tablet PO (08:21)
[2024-12-24] MEDS: Memantine Hydrochloride 5 MG Tablet PO ×2 (08:21→20:54)
[2024-12-24] MEDS: Iron Polysaccharide Complex 150 MG CAPSULE PO (08:21)
[2024-12-24] MEDS: Umeclidinium Bromide Inhaler 1 PUFF INHALATION (08:24)
[2024-12-24 10:02] VITALS: O2SAT 93
[2024-12-24 13:29] VITALS: BP 114/64; PULSE 98; RESP 16; TEMP 36.7; O2SAT 96
[2024-12-24 19:30] VITALS: RESP 18
[2024-12-24] MEDS: MELATONIN 10 MG TABLET 5 MG PO (20:53)
[2024-12-25] MEDS: morphine (oral solution) 10MG/0.5ML Syringe 10 MG SL/PO ×4 (01:51→23:25)
--- NOTE | 2024-12-25 02:26 | NURSING ---
Patient tearful this shift, unable to rest. Chronic pain managed with repositioning, PRN pain medications, and KPAD this shift. Upon transferring patient back to bed after using the bedside commode, patient asks this nurse, what do I do now? This nurse asked patient what she meant. Patient asks, How do I get better from this? This nurse encouraged patient to stay motivated and try to remain in good spirits. Encouraged patient to be patient with herself and to do her best in therapy. GABRIEL Corley, called patient's daughter 12/24/24 and recommended bringing patient her favorite foods and comfort items. Patient educated on intake of food and fluids as they are very important in the healing process. This nurse encouraged patient to eat her favorite foods as this will result in an increase in intake. Patient appreciative and denies further assistance at this time. Call light in reach, bed in lowest position, comfort measures in place.
[2024-12-25 05:30] VITALS: RESP 18
[2024-12-25] MEDS: Levothyroxine 175 MCG Tablet PO (05:32)
[2024-12-25] MEDS: Acetaminophen 500 MG Tablet 1000 MG PO ×3 (05:32→21:55)
[2024-12-25] MEDS: traMADol 50 MG Tablet PO ×2 (05:32→13:59)
[2024-12-25 09:09] VITALS: BP 135/64; PULSE 99; RESP 18; TEMP 36.7; O2SAT 99
[2024-12-25] MEDS: Iron Polysaccharide Complex 150 MG CAPSULE PO (09:13)
[2024-12-25] MEDS: Folic Acid 1 MG Tablet PO (09:13)
[2024-12-25] MEDS: Cefdinir 300 MG Capsule PO ×2 (09:13→21:56)
[2024-12-25] MEDS: Memantine Hydrochloride 5 MG Tablet PO ×2 (09:13→21:57)
[2024-12-25] MEDS: Azithromycin 250 MG Tablet PO (09:13)
[2024-12-25] MEDS: Ascorbic Acid 500 MG Tablet PO (09:13)
[2024-12-25] MEDS: Pantoprazole Sodium 40 MG Tablet PO (09:13)
[2024-12-25] MEDS: Umeclidinium Bromide Inhaler 1 PUFF INHALATION (09:13)
[2024-12-25] MEDS: Polyethylene Glycol 3350 17 GM PACKET PO (09:13)
[2024-12-25] MEDS: Senna/Docusate Sodium 1 Tablet 2 TABLET PO (09:13)
--- NOTE | 2024-12-25 11:22 | PCM.PN.DRR ---
Documented by User: Holley Caldwell 12/25/24 11:53 TCU RX Drug Regimen Review Subjective/Objective Subjective/Objective Subjective: TCU Admission. 79 YOF presented to the ER with left hip pain, transferred to [facility]. Hospitalized for left pathologic femoral neck fracture 2/2 lung cancer mets, underwent cephalomedullary nailing 12/19/[address] Diallo, postoperative course complicated by hyponatremia, atrial flutter with rapid ventricular response, acute blood loss anemia. Admitted to TCU with debility for strengthening and rehabilitation. Objective: Allergies No Known Allergies Allergy (Verified 12/15/24 12:05) Current Medications Generic Name Dose Route Start Last Admin Trade Name Freq PRN Reason Stop Dose Admin Acetaminophen 1,000 mg 12/22/24 22:00 12/25/24 05:32 Acetaminophen 500 Mg Tablet PO 1,000 mg Q8 KELSY Administration Albuterol Sulfate 2 puff 12/22/24 14:37 Albuterol Ih (6.7 Gm) 1 Puff Inhaler INHALATION Q6H PRN wheezing Ascorbic Acid 500 mg 12/24/24 10:00 12/25/24 09:13 Ascorbic Acid 500 Mg Tablet PO 500 mg DAILY KELSY Administration Azithromycin 250 mg 12/24/24 10:00 12/25/24 09:13 Azithromycin 250 Mg Tablet PO 12/28/24 10:01 250 mg Q24 KELSY Administration Calcium Carbonate 500 mg 12/23/24 10:00 12/24/24 08:21 Calcium Carbonate 500 Mg Tablet PO 500 mg DAILY KELSY Administration Cefdinir 300 mg 12/23/24 12:12 12/25/24 09:13 Cefdinir 300 Mg Capsule PO 12/30/24 12:13 300 mg Q12 KELSY Administration Folic Acid 1 mg 12/23/24 08:00 12/25/24 09:13 Folic Acid 1 Mg Tablet PO 1 mg BREAKFAST KELSY Administration Glycerin/Hypromellose/Polyethylene 2 drp 12/22/24 14:41 Glycerin/Hypromellose/Mie085 15 Ml Bottle EACH EYE Q1H PRN DRY EYES Levothyroxine Sodium 175 mcg 12/23/24 06:00 12/25/24 05:32 Levothyroxine 175 Mcg Tablet PO 175 mcg DAILY@0600 KELSY Administration Magnesium Citrate 300 ml 12/22/24 14:59 Magnesium Citrate 300 Ml PO DAILY PRN Constipation Melatonin 5 mg 12/22/24 22:00 12/24/24 20:53 Melatonin 10 Mg Tablet PO 5 mg QHS KELSY Administration Memantine 5 mg 12/22/24 22:00 12/25/24 09:13 Memantine Hydrochloride 5 Mg Tablet PO 5 mg BID KELSY Administration Morphine Sulfate 10 mg 12/25/24 08:03 12/25/24 09:34 Morphine (Oral Solution) 10mg/0.5ml Syringe SL/PO 10 mg Q1H PRN Administration Pain Score 6-10 or Pre PT/OT Ondansetron HCl 8 mg 12/22/24 14:37 Ondansetron 8 Mg Tablet PO Q8H PRN PRN nausea and vomiting Oxycodone HCl 10 mg 12/22/24 14:58 12/24/24 20:53 Oxycodone 5 Mg Tablet PO 10 mg Q4H PRN PRN Administration Pain Score 4-5 or Pre PT/OT Pantoprazole Sodium 40 mg 12/23/24 10:00 12/25/24 09:13 Pantoprazole Sodium 40 Mg Tablet PO 40 mg DAILY KELSY Administration Polyethylene Glycol 17 gm 12/23/24 10:00 12/25/24 09:13 Polyethylene Glycol 3350 17 Gm Packet PO 17 gm DAILY KELSY Administration Polysaccharide Iron Complex 150 mg 12/24/24 10:00 12/25/24 09:13 Iron Polysaccharide Complex 150 Mg Capsule PO 150 mg DAILY KELSY Administration Senna/Docusate Sodium 2 tablet 12/22/24 22:00 12/25/24 09:13 Senna/Docusate Sodium 1 Tablet PO 2 tablet BID KELSY Administration Sodium Chloride 10 - 40 ml 12/22/24 14:45 0.9% Saline Lock 10 Ml Syringe IV UD PRN SALINE FLUSH Tramadol HCl 50 mg 12/22/24 14:58 12/25/24 05:32 Tramadol 50 Mg Tablet PO 50 mg Q6H PRN PRN Administration Pain Score 1-3 or Pre PT/OT Tuberculin PPD 0.1 ml 12/30/24 10:00 Tuberculin,Purif.Prot.Deriv. 50 Tu/Ml Vial ID 12/30/24 10:01 X1 ONE Umeclidinium [place] 1 puff 12/23/24 10:00 12/25/24 09:13 Umeclidinium [place] Inhaler INHALATION 1 inh DAILY KELSY Administration Problem List Essential (primary) hypertension (Acute) Hypothyroidism (Acute) COPD (chronic obstructive pulmonary disease) (Chronic) Barretts esophagus (Acute) Dementia, unspecified, without behavioral disturbance (Acute) Metastasis to brain (Acute) Non-small cell lung cancer (NSCLC) (Acute) Hyponatremia (Acute) Atrial flutter with rapid ventricular response (Acute) Debility (Acute) Vital Signs Temp Pulse Resp BP Pulse Ox O2 Del Method O2 Flow Rate 98.1 F 99 18 135/64 H 99 Nasal Cannula 3 12/25/24 09:09 12/25/24 09:09 12/25/24 09:09 12/25/24 09:09 12/25/24 09:09 12/25/24 09:09 12/25/24 09:09 Oxygen Flow Rate (L/min) 3 Oxygen Delivery Method Nasal Cannula Weight: 65.317 kg Body Mass Index (BMI) 24.7 Sodium 134 mmol/L (133-145) 12/23/24 06:22 Potassium 3.9 mmol/L (3.3-5.1) 12/23/24 06:22 Chloride 96 mmol/L (98-108) L 12/23/24 06:22 Carbon Dioxide 26.0 mmol/L (21.0-32.0) 12/23/24 06:22 Anion Gap 12 (5-15) 12/23/24 06:22 BUN 37 mg/dL (4-19) H 12/23/24 06:22 Creatinine 0.67 mg/dL (0.70-1.20) L 12/23/24 06:22 Est GFR (MDRD) Non-Af 89 (>60) 12/23/24 06:22 BUN/Creatinine Ratio 55.6 RATIO (10-20) H 12/23/24 06:22 Glucose 131 mg/dL (70-99) H 12/23/24 06:22 Assessment/Plan: 1. Pain: acetaminophen 1000mg PO Q8, tramadol 50mg PO Q6H PRN pain 1-3 (3 doses, pain 3 and 5 in back), oxycodone 10mg PO Q4H PRN pain 4-5 (8 doses, pain 4/5/8 in back/LLE) and morphine 10mg/0.5mL PO/SL Q1H PRN pain 6-10 (7 doses, pain 6 in hip/back). Please continue to monitor for increased pain, PRN usage, respiratory depression (RR 16-18), constipation, falls (BEERs), renal function, LFTs (last 12/15/24 WNL). 2. Bowel: Miralax 17gm PO daily, senna/docusate 2T PO BID and magnesium citrate 300mL PO daily PRN constipation. No PRN doses have been given. Please continue to monitor for constipation, PRN usage. Last documented bowel movement was 12/25/24. 3. RLL pneumonia: cefdinir 300mg PO BID thru 12/30/24 and azithromycin 250mg PO daily thru 12/28/24. Please continue to monitor for S/S of infection, stool discoloration, diarrhea and renal function. 4. Hypothyroidism: levothyroxine 175mcg PO daily. Please consider ordering a TSH as the last one in the chart is from 2020. Thanks. Please continue to monitor for S/S of hypo/hyperthyroidism. 5. COPD: Incruse ellipta 1 puff inhalation daily and albuterol MDI 2 puffs inhalation Q6H PRN wheezing. Resident has not had any PRN doses. Please continue to monitor for PRN usage, SOB and wheezing. 6. Zee's esophagus: pantoprazole 40mg PO daily and calcium carbonate 500mg PO daily. Please continue to monitor calcium (last 9mg/dL) and diarrhea (BEERs). 7. Dementia NOS: memantine 5mg PO BID. Please continue to monitor for rash, fatigue, drowsiness, confusion. 8. Insomnia: melatonin 5mg PO QHS. Please continue to monitor for excessive daytime drowsiness. 9. Nausea: ondansetron 8mg PO Q8H PRN nausea/vomiting. No doses given so far. Please continue to monitor for PRN usage, nausea and vomiting. 10. Folate deficiency: folic acid 1mg PO daily. Please continue to monitor. 11. Dry eyes: artificial tears 2 gtt OU Q6H PRN dry eyes. No doses given so far. Please continue to monitor for dry eyes and PRN usage. 12. Iron deficiency (based on hemoglobin 8.6g/dL 12/23/24): Ferrex 150mg PO daily and ascorbic acid 500mg PO daily. Please continue to monitor hemoglobin, dark stools, constipation and iron studies (last 12/23/24). Assessment/Plan for indications treated with psychotropic medications: Resident is not prescribed scheduled or prn psychotropic medications at the time of this drug regimen review. Medical chart and medication regimen reviewed. The following medication irregularities or issues were identified: 1. Levothyroxine 175mcg PO daily. Please consider ordering a TSH as the last one in the chart is from 2020. Thanks. Date Date of Note: 12/25/24 Documented by User: Dr. Carlos Rosas MD 12/25/24 12:13 TCU RX Drug Regimen Review Provider Comments Provider responsibility Provider Comments to Recommendations by Pharmacy Agree
--- NOTE | 2024-12-25 12:25 | NURSING ---
Advisory Intern Note; Activity Asset: Jarret oGff is independent in her choice of daily activities. She stated due to her health she prefers to stay in her room. She stated due to her cataract she can not read however will listen to the tv. She was offered a radio and denied it. Staff will continue to do room visits weekly and offer activities, home theater specialist and therapy dog are welcome to visit along w/family. Staff will remind her of weekly activities and respect her right to say no.
--- NOTE | 2024-12-25 15:31 | CASEMGMT ---
Social Work SW met with patient to complete initial assessment. Introduced self and role. Verified contacts. Patient confirmed code status as DNR-CCA, no intubation. SW educated to [facility] insurance with NRD 5/ and continued stay is not guaranteed with each review;providing a 3-day notice for DC. pt's goal is to return home alone once stronger and resume chemotherapy. SW discussed palliative care. Pt interested and agreeable to referral at DC. SW educated to [facility] and provided brochure. SW offered support if mood declines. SW will continue to follow for DC planning assistance. Kacie Christian OIL RIG DRILLER PLATE SETTER
[2024-12-25 16:19] VITALS: O2SAT 96
[2024-12-25] MEDS: oxyCODONE 5 MG Tablet 10 MG PO (21:54)
[2024-12-25] MEDS: MELATONIN 10 MG TABLET 5 MG PO (21:56)
[2024-12-26] MEDS: Levothyroxine 175 MCG Tablet PO (05:26)
[2024-12-26] MEDS: Acetaminophen 500 MG Tablet 1000 MG PO ×3 (05:27→22:20)
[2024-12-26] MEDS: morphine (oral solution) 10MG/0.5ML Syringe 10 MG SL/PO ×3 (05:28→13:46)
[2024-12-26 07:41] VITALS: O2SAT 94
[2024-12-26 09:17] VITALS: BP 126/71; PULSE 95; RESP 18; TEMP 36.2; O2SAT 96
[2024-12-26] MEDS: Iron Polysaccharide Complex 150 MG CAPSULE PO (09:18)
[2024-12-26] MEDS: Memantine Hydrochloride 5 MG Tablet PO ×2 (09:18→22:21)
[2024-12-26] MEDS: Folic Acid 1 MG Tablet PO (09:18)
[2024-12-26] MEDS: Cefdinir 300 MG Capsule PO ×2 (09:18→22:21)
[2024-12-26] MEDS: Calcium Carbonate 500 MG Tablet PO (09:19)
[2024-12-26] MEDS: oxyCODONE 5 MG Tablet 10 MG PO ×2 (09:19→22:20)
[2024-12-26] MEDS: Ascorbic Acid 500 MG Tablet PO (09:19)
[2024-12-26] MEDS: Pantoprazole Sodium 40 MG Tablet PO (09:19)
[2024-12-26] MEDS: Azithromycin 250 MG Tablet PO (09:19)
[2024-12-26] MEDS: Umeclidinium Bromide Inhaler 1 PUFF INHALATION (09:20)
[2024-12-26 13:54] VITALS: BMI 24.5
--- NOTE | 2024-12-26 15:19 | NURSING ---
Addendum entered by Yuly Marquez 12/26/24 15:22: Updated resident and son at bedside. Original Note: Spoke with Shalonda in Dr. Diallo's office. Ok for TCU to remove farooq and do xrays on 01/02/25. She will need to follow-up in office at 6 weeks post-op.
[2024-12-26 16:28] VITALS: O2SAT 89
[2024-12-26] MEDS: MELATONIN 10 MG TABLET 5 MG PO (22:20)
[2024-12-27] MEDS: morphine (oral solution) 10MG/0.5ML Syringe 10 MG SL/PO ×3 (00:59→21:45)
[2024-12-27] MEDS: Levothyroxine 100 MCG Tablet 200 MCG PO (06:15)
[2024-12-27] MEDS: Acetaminophen 500 MG Tablet 1000 MG PO ×3 (06:15→21:48)
[2024-12-27] MEDS: oxyCODONE 5 MG Tablet 10 MG PO ×3 (06:16→23:28)
[2024-12-27 09:31] VITALS: O2SAT 99
[2024-12-27] MEDS: Ascorbic Acid 500 MG Tablet PO (09:38)
[2024-12-27] MEDS: Calcium Carbonate 500 MG Tablet PO (09:38)
[2024-12-27] MEDS: Azithromycin 250 MG Tablet PO (09:38)
[2024-12-27] MEDS: Iron Polysaccharide Complex 150 MG CAPSULE PO (09:39)
[2024-12-27] MEDS: traMADol 50 MG Tablet PO (09:39)
[2024-12-27] MEDS: Folic Acid 1 MG Tablet PO (09:39)
[2024-12-27] MEDS: Cefdinir 300 MG Capsule PO ×2 (09:39→21:47)
[2024-12-27] MEDS: Memantine Hydrochloride 5 MG Tablet PO (09:39)
[2024-12-27] MEDS: Pantoprazole Sodium 40 MG Tablet PO (09:39)
[2024-12-27] MEDS: Umeclidinium Bromide Inhaler 1 PUFF INHALATION (09:40)
--- NOTE | 2024-12-27 13:25 | CASEMGMT ---
Social Work IDT met with patient, dtr and ALICE for care plan meeting. Discussed patient's progress in PT/OT/SN. Educated to [facility] insurance with NRD 01/01, EDC 01/05. Provided pt/family with written communication of insurance process and copay coverage during stay. Discussed pt's weakness and pain. Pt is motivated but is limited with physical abilities. SW discussed IDT recommendations of having additional support in the home at DC. When pt is ambulating, doing ADLs, etc, pt needs assistance. pt is on new O2. Pt is cognitively intact and does not need assistance throughout the night, if pt remains in bed/asleep. Offered resources for private duty aides. Explained pt can have skilled HHC or OP therapy at DC. If pt elects not to return home, SW can discuss AL or SNF - OOP cost. Encouraged family/pt to discuss plans for DC and notify this worker by the end of the week to finalize DC plans and report to insurance on 01/01. SW will continue to follow for DC planning. Kacie Christian SOFA INSPECTOR SEO STRATEGIST
[2024-12-27 14:52] VITALS: BP 105/63; PULSE 107; RESP 16; TEMP 36.1; O2SAT 96
[2024-12-27] MEDS: MELATONIN 10 MG TABLET 5 MG PO (21:48)
[2024-12-27] MEDS: Memantine Hydrochloride 10 MG Tablet PO (21:49)
[2024-12-27 22:02] VITALS: PULSE 96; RESP 18
[2024-12-28] MEDS: morphine (oral solution) 10MG/0.5ML Syringe 10 MG SL/PO ×5 (00:08→22:29)
[2024-12-28] MEDS: traMADol 50 MG Tablet PO (05:50)
[2024-12-28] MEDS: Levothyroxine 100 MCG Tablet 200 MCG PO (05:52)
[2024-12-28] MEDS: Acetaminophen 500 MG Tablet 1000 MG PO ×3 (05:52→21:02)
[2024-12-28 05:56] VITALS: PULSE 102; RESP 18
[2024-12-28 07:13] VITALS: O2SAT 94
[2024-12-28] MEDS: Iron Polysaccharide Complex 150 MG CAPSULE PO (10:12)
[2024-12-28] MEDS: Azithromycin 250 MG Tablet PO (10:12)
[2024-12-28] MEDS: Pantoprazole Sodium 40 MG Tablet PO (10:12)
[2024-12-28] MEDS: Memantine Hydrochloride 10 MG Tablet PO ×2 (10:12→21:02)
[2024-12-28] MEDS: Cefdinir 300 MG Capsule PO ×2 (10:12→21:02)
[2024-12-28] MEDS: Ascorbic Acid 500 MG Tablet PO (10:12)
[2024-12-28] MEDS: Calcium Carbonate 500 MG Tablet PO (10:12)
[2024-12-28] MEDS: Folic Acid 1 MG Tablet PO (10:12)
[2024-12-28] MEDS: Umeclidinium Bromide Inhaler 1 PUFF INHALATION (10:13)
[2024-12-28 10:17] VITALS: PULSE 94; RESP 16; TEMP 36.8; O2SAT 97
[2024-12-28 15:56] VITALS: O2SAT 98
[2024-12-28] MEDS: oxyCODONE 5 MG Tablet 10 MG PO (16:42)
[2024-12-28] MEDS: MELATONIN 10 MG TABLET 5 MG PO (21:02)
[2024-12-29 06:06] LABS: Absolute Lymphocyte Count 1.02 X10^3/uL (0.83-4.51); Absolute Neutrophil Count 14.3 X10^3/uL (2.0-7.7); Basophil# 0.03 X10^3/uL; Basophil% 0.2 % (0-1); Eosinophil# 0.04 X10^3/uL; Eosinophils% 0.2 % (0-5); Hematocrit 26.8 % (37-47); Hemoglobin 8.9 g/dL (12.0-15.0); Lymphocyte # 1.02 X10^3/ul (0.83-4.51); Lymphocyte % 6.1 % (19-41); Mean Corp Hgb Conc 33.2 g/dL (32-36); Mean Corpuscular Hgb 31.8 pg (27.0-32.0); Mean Corpuscular Volume 95.7 fL (81-99); Mean Platelet Vol. 10.4 fl (6.2-12.0); Monocyte# 1.14 X10^3/uL; Monocyte% 6.9 % (0-10); NRBC Flagged by Analyzer 0 % (0-5); Neutrophil # 14.27 X10^3/uL (2.7-7.7); Neutrophil % 85.8 % (47-70); Platelet Count 376 K/mm3 (150-450); RBC Distribution Width CV 16.3 % (11.6-14.6); RBC Distribution Width SD 57.2 fl (35.1-43.9); White Blood Count 16.6 K/mm3 (4.4-11.0)
[2024-12-29] MEDS: oxyCODONE 5 MG Tablet 10 MG PO ×2 (06:11→11:57)
[2024-12-29] MEDS: Acetaminophen 500 MG Tablet 1000 MG PO ×3 (06:11→21:10)
[2024-12-29] MEDS: Levothyroxine 100 MCG Tablet 200 MCG PO (06:11)
[2024-12-29 06:55] LABS: Anion Gap 10 (5-15); BUN 13 mg/dL (4-19); BUN/Creat Ratio 24.1 RATIO (10-20); Calcium,Total 8.7 mg/dL (7.6-11.0); Chloride 92 mmol/L (98-108); Creatinine, Serum 0.55 mg/dL (0.70-1.20); EST Glomerular Filtration Rate 93 (>60); Estimated Creatinine Clearance 49.24 ml/min (50-250); Glucose 99 mg/dL (70-99); Potassium 4.3 mmol/L (3.3-5.1); Sodium Level 128 mmol/L (133-145)
[2024-12-29 08:28] VITALS: BP 115/62; PULSE 101; RESP 18; TEMP 36.2; O2SAT 97
[2024-12-29] MEDS: Folic Acid 1 MG Tablet PO (08:34)
[2024-12-29] MEDS: Iron Polysaccharide Complex 150 MG CAPSULE PO (08:34)
[2024-12-29] MEDS: Umeclidinium Bromide Inhaler 1 PUFF INHALATION (08:34)
[2024-12-29] MEDS: Pantoprazole Sodium 40 MG Tablet PO (08:35)
[2024-12-29] MEDS: Calcium Carbonate 500 MG Tablet PO (08:35)
[2024-12-29] MEDS: Cefdinir 300 MG Capsule PO ×2 (08:35→21:10)
[2024-12-29] MEDS: Ascorbic Acid 500 MG Tablet PO (08:35)
[2024-12-29] MEDS: Memantine Hydrochloride 10 MG Tablet PO ×2 (08:35→21:10)
--- NOTE | 2024-12-29 08:42 | NURSING ---
Generating Plant Superintendent Note; MDS for 12/29/2024 Complete
[2024-12-29 09:15] LABS: Osmolality, Serum 268 mOsm/KG (280-301)
--- NOTE | 2024-12-29 10:53 | CASEMGMT ---
Addendum entered by Kacie Christian 12/29/24 11:56: Dtr scheduled tour with [facility] today at 1530. Dtr interested in [facility] and will schedule a tour. DORINDA sent referral via secure email. Addendum entered by Kacie Christian 12/29/24 11:43: Dtr confirmed [facility] does not have rooms, but offered [place] location. Dtr requested referral to [facility] - they do have rooms - SW placed referral. Original Note: Social Work SW completed BIMS () and PHQ-2 () for MDS assessment. SW provided brochure for [facility]. Also inquired about DC plans. pt unaware. SW offered to contact dtr and pt agreed. - SW phoned dtr to inquire about DC plans. Dtr stated she was waiting until Wednesday to see what the insurance says, but family cannot provide the care pt needs at home and is looking into AL. SW explained the insurance update is Wednesday and we want to report to them the DC plan, and be prepared, as the anticipated DC date is 01/04. SW confirmed dtr/pt knows it is an OOP cost and furniture needs to be provided unless the AL has a respite room. Dtr aware of OOP cost, but not of the furnishings. SW inquired about preferences. Dtr planning to schedule tours with [place] and [facility]. Pt explained from current referrals for other pts, [facility] not have rooms available. SW offered to contact [facility] as that may also be the case. Dtr appreciative. SW offered to send list of options. Dtr agreed to send via email. Email provided. - DORINDA phoned Renny at [facility] and confirmed AL has no vacancies. - DORINDA sent dtr email with AL list and update on no beds at [facility]. Will continue to follow. Kacie Christian PLUG SAW OPERATOR MEDICAL RECEPTIONIST ASSISTANT
[2024-12-29 11:15] LABS: Osmolality, Urine 283 mOsm/KG
[2024-12-29 12:02] LABS: Urine Sodium < 20 mmol/L (Not Establ.)
[2024-12-29] MEDS: morphine (oral solution) 10MG/0.5ML Syringe 10 MG SL/PO ×3 (12:24→21:17)
[2024-12-29 13:15] VITALS: O2SAT 98
--- NOTE | 2024-12-29 16:15 | CHAPLAIN ---
Type of Pastoral Visit _x__ Initial Visit ___ Follow-up Visit ___ On-call Visit ___ General Patient Visit ___ Spiritual Assessment ___ Family Conference ___ Bereavement ___ Rapid Response ___ Code Blue ___ Other (describe below) Pastoral Care Referral From _x__ Patient ___ Family ___ Nurse ___ Physician ___ Hot Sealing Machine Operator ___ Astrobiologist ___ Other (describe below) Sacrament/Intervention _x__ Active listening ___ Anointing ___ Cheondoism ___ Bereavement ___ Communion _x__ [place] exploration ___ _x__ Life review _x__ Prayer ___ Reconciliation ___ Sacrament of Sick _x_ Supportive presence ___ Wedding ___ Other (describe below) Pastoral Comments patient visit was recommended by staff PHARMACEUTICAL LABORATORY TECHNICIAN; pt is welcoming and admits that she is having a difficult time calling it all so overwhelming with so much going on; pt had a fall with broken hip and surgery; pt has lung cancer and is receiving treatment; pt's son from out of state just left today to go home; two of her grandchildren are graduating from college tomorrow and she will not be able to attend; however pt reviews how much she has been blessed in life, how good that her family is doing, and that it is in God's hands; pt welcomes someone to talk with about these things and to have prayer spoken
[2024-12-29 20:25] VITALS: PULSE 97; O2SAT 98
[2024-12-29] MEDS: MELATONIN 10 MG TABLET 5 MG PO (21:08)
[2024-12-29] MEDS: Senna/Docusate Sodium 1 Tablet 2 TABLET PO (21:10)
[2024-12-30] MEDS: morphine (oral solution) 10MG/0.5ML Syringe 10 MG SL/PO ×3 (02:34→20:24)
[2024-12-30] MEDS: oxyCODONE 5 MG Tablet 10 MG PO ×2 (05:03→09:38)
[2024-12-30] MEDS: Levothyroxine 100 MCG Tablet 200 MCG PO (05:04)
[2024-12-30] MEDS: Acetaminophen 500 MG Tablet 1000 MG PO ×3 (05:04→20:25)
[2024-12-30 06:19] LABS: Anion Gap 10 (5-15); BUN 13 mg/dL (4-19); BUN/Creat Ratio 21.2 RATIO (10-20); Calcium,Total 8.7 mg/dL (7.6-11.0); Carbon Dioxide 27.1 mmol/L (21.0-32.0); Chloride 92 mmol/L (98-108); Creatinine, Serum 0.59 mg/dL (0.70-1.20); EST Glomerular Filtration Rate 92 (>60); Estimated Creatinine Clearance 49.24 ml/min (50-250); Glucose 105 mg/dL (70-99); Potassium 4.6 mmol/L (3.3-5.1); Sodium Level 129 mmol/L (133-145)
[2024-12-30 09:24] VITALS: BP 118/72; PULSE 94; RESP 18; TEMP 36.6; O2SAT 94
[2024-12-30 09:31] LABS: Cholesterol 148 mg/dL (<=200); High Density Lipoprotein 25 mg/dL; Low Density Lipoprotein Calc. 81 mg/dL; Triglycerides 211 mg/dL; Very Low Density Lipoprotein 42 mg/dL (5-40); cholesterol:hdl ratio screen 5.85
[2024-12-30] MEDS: Memantine Hydrochloride 10 MG Tablet PO ×2 (09:37→20:25)
[2024-12-30] MEDS: Umeclidinium Bromide Inhaler 1 PUFF INHALATION (09:37)
[2024-12-30] MEDS: Polyethylene Glycol 3350 17 GM PACKET PO (09:37)
[2024-12-30] MEDS: Folic Acid 1 MG Tablet PO (09:37)
[2024-12-30] MEDS: Cefdinir 300 MG Capsule PO (09:37)
[2024-12-30] MEDS: Iron Polysaccharide Complex 150 MG CAPSULE PO (09:37)
[2024-12-30] MEDS: Pantoprazole Sodium 40 MG Tablet PO (09:37)
[2024-12-30] MEDS: Ascorbic Acid 500 MG Tablet PO (09:38)
[2024-12-30] MEDS: traMADol 50 MG Tablet PO (11:44)
[2024-12-30] MEDS: Tuberculin,Purif.prot.deriv. 50 TU/ML Vial 0.1 ML ID (11:44)
[2024-12-30 12:13] LABS: Bacteria 0 SEEN /hpf (None Seen); Mucous, Urine 0 SEEN /hpf (<or=2+); Red Blood Cells-Urine 0 SEEN /hpf (0-5); White Blood Cells 0 SEEN /hpf (0-5)
[2024-12-30 12:15] LABS: Color, Urine Yellow (Yellow); Glucose, Dipstick Normal (Normal); Ketone-Dipstick Negative (Negative); Leukocyte Esterase-Dipstick Negative /ul (Negative); Nitrite-Dipstick Negative (Negative); Occult Blood-Urine Negative /ul (Negative); Protein-Dipstick 15 mg/dl (Negative); Urine Bilirubin Dipstick Negative (Negative); Urine Clarity Clear (Clear); Urine Urobilinogen Normal (Normal); Urine pH 6.5 (5.0 - 8.0)
[2024-12-30 12:21] LABS: Squamous Epithelial Cells - UA 0-5 SEEN /hpf (5-10)
[2024-12-30] MEDS: MELATONIN 10 MG TABLET 5 MG PO (20:25)
[2024-12-31] MEDS: morphine (oral solution) 10MG/0.5ML Syringe 10 MG SL/PO ×4 (01:45→20:36)
[2024-12-31] MEDS: oxyCODONE 5 MG Tablet 10 MG PO ×2 (05:41→17:16)
[2024-12-31] MEDS: Levothyroxine 100 MCG Tablet 200 MCG PO (05:41)
[2024-12-31] MEDS: Acetaminophen 500 MG Tablet 1000 MG PO ×3 (05:41→20:38)
[2024-12-31 08:50] VITALS: BP 98/58; PULSE 99; RESP 18; TEMP 36.3; O2SAT 99
[2024-12-31] MEDS: Umeclidinium Bromide Inhaler 1 PUFF INHALATION (08:59)
[2024-12-31] MEDS: Iron Polysaccharide Complex 150 MG CAPSULE PO (08:59)
[2024-12-31] MEDS: Polyethylene Glycol 3350 17 GM PACKET PO (08:59)
[2024-12-31] MEDS: Ascorbic Acid 500 MG Tablet PO (08:59)
[2024-12-31] MEDS: Folic Acid 1 MG Tablet PO (08:59)
[2024-12-31] MEDS: Pantoprazole Sodium 40 MG Tablet PO (08:59)
[2024-12-31] MEDS: Memantine Hydrochloride 10 MG Tablet PO ×2 (08:59→20:39)
--- NOTE | 2024-12-31 20:29 | EKG12_ITS ---
Test Reason : CP Blood Pressure : */* mmHG Vent. Rate : 99 BPM Atrial Rate : 99 BPM P-R Int : 158 ms QRS Dur : 88 ms QT Int : 342 ms P-R-T Axes : 37 -6 12 degrees QTcB Int : 438 ms Sinus rhythm with Premature atrial complexes Inferior infarct , age undetermined Abnormal ECG When compared with ECG of 23-Dec-2024 15:13, Sinus rhythm has replaced Atrial fibrillation Inferior infarct is now Present Confirmed by Jose Johnson ([id number]), publication editor WARREN LO ([id number]) on 01/01/2025 11:53:38 AM Referred By: Carlos Rosas Confirmed By: Jose Johnson
[2024-12-31] MEDS: SimETHICONE 80 MG Chewable Tablet PO (20:34)
[2024-12-31] MEDS: MELATONIN 10 MG TABLET 5 MG PO (20:39)
[2025-01-01] MEDS: morphine (oral solution) 10MG/0.5ML Syringe 10 MG SL/PO ×5 (02:01→23:40)
[2025-01-01] MEDS: oxyCODONE 5 MG Tablet 10 MG PO ×3 (06:01→22:08)
[2025-01-01] MEDS: Levothyroxine 100 MCG Tablet 200 MCG PO (06:02)
[2025-01-01] MEDS: Acetaminophen 500 MG Tablet 1000 MG PO ×3 (06:02→21:27)
[2025-01-01 06:16] VITALS: PULSE 97; RESP 18; O2SAT 98
[2025-01-01 07:38] VITALS: O2SAT 99
[2025-01-01] MEDS: Pantoprazole Sodium 40 MG Tablet PO (07:57)
[2025-01-01] MEDS: Iron Polysaccharide Complex 150 MG CAPSULE PO (07:57)
[2025-01-01] MEDS: Polyethylene Glycol 3350 17 GM PACKET PO (07:57)
[2025-01-01] MEDS: Folic Acid 1 MG Tablet PO (07:57)
[2025-01-01] MEDS: Senna/Docusate Sodium 1 Tablet 2 TABLET PO (07:58)
[2025-01-01] MEDS: Memantine Hydrochloride 10 MG Tablet PO ×2 (07:58→21:27)
[2025-01-01] MEDS: Umeclidinium Bromide Inhaler 1 PUFF INHALATION (07:58)
[2025-01-01] MEDS: Ascorbic Acid 500 MG Tablet PO (07:58)
[2025-01-01] MEDS: Calcium Carbonate 500 MG Tablet PO (07:58)
--- NOTE | 2025-01-01 08:25 | CASEMGMT ---
Social Work SW received VM from dtr that [facility] F[facility]. SW followed up with [facility] to confirm acceptance. Awaiting outcome from insurance update this date. Kacie Christian GOLD MINER HISTORICAL ARCHEOLOGIST
--- NOTE | 2025-01-01 09:38 | NURSING ---
Offered covid vaccine, VIS provided. Declines at this time.
--- NOTE | 2025-01-01 11:11 | CASEMGMT ---
Addendum entered by Kacie Christian 01/01/25 11:36: [facility] stated [facility] utilize [facility] or [facility]. - DORINDA phoned dtr and provided options and offered to send CarePort Guide with quality and resource data. Dtr prefers [facility]. - DORINDA phoned referral to [facility]. Original Note: Social Work Insurance issued LCD 01/03. DC 01/04 SW spoke with pt to notify of DC date. DORINDA provided [facility] to pt and educated to appeal rights. Pt verbalized understanding and denied appeal. Pt is agreeable to DC. Pt confirmed agreement with DC plan to [facility], respite room. - DORINDA phoned dtr to update on above. Confirmed DC plans. Dtr can transport pt at 1430. - DORINDA updated [facility] of DC date and inquired about PT/OT orders. Plan: DC 01/04 to [facility], PT/OT Kacie Christian POST HOLE DIGGER BLOCK BREAKER
[2025-01-01 12:53] VITALS: BP 120/69; PULSE 103; RESP 17; TEMP 36.4; O2SAT 100
--- NOTE | 2025-01-01 19:48 | DS.PCM_ITS ---
Providers Date of Admission: 12/22/24 Primary Care Physician: Dr. Ross Magallon, DO Reason For Visit: LEFT FEMUR FRACTURE Diagnosis Discharge Diagnosis (1) Debility: Status: Acute Code(s): R53.81 - Other malaise (2) Pathologic fracture of neck of left femur: Status: Inactive Code(s): M84.452A - Pathological fracture, left femur, initial encounter for fracture (3) Atrial flutter with rapid ventricular response: Status: Acute Code(s): I48.92 - Unspecified atrial flutter (4) Hyponatremia: Status: Acute Code(s): E87.1 - Hypo-osmolality and hyponatremia (5) Non-small cell lung cancer (NSCLC): Status: Acute Code(s): C34.90 - Malignant neoplasm of unspecified part of unspecified bronchus or lung (6) Metastasis to brain: Status: Acute Code(s): C79.31 - Secondary malignant neoplasm of brain (7) Dementia, unspecified, without behavioral disturbance: Status: Acute Code(s): F03.90 - Unspecified dementia, unspecified severity, without behavioral disturbance, psychotic disturbance, mood disturbance, and anxiety (8) Barretts esophagus: Status: Acute Code(s): K22.70 - Zee's esophagus without dysplasia (9) COPD (chronic obstructive pulmonary disease): Status: Chronic Code(s): J44.9 - Chronic obstructive pulmonary disease, unspecified (10) Hypothyroidism: Status: Acute Code(s): E03.9 - Hypothyroidism, unspecified (11) Essential (primary) hypertension: Status: Acute Code(s): I10 - Essential (primary) hypertension Plan 79 year old female with below past medical history hospitalized for left pathologic femoral neck fracture 2/2 lung cancer mets, underwent cephalomedullary nailing 12/19/[address] Diallo, postoperative course complicated by hyponatremia, atrial flutter with rapid ventricular response, acute blood loss anemia, admitted to TCU with debility, here for rehabilitation, strengthening, prior to discharge home alone. * Debility - PT/OT. * Pain - Tylenol 1000mg q8, Tramadol 50mg q6 prn pain (1-3), Oxycodone 10mg q4 prn pain (4-5), Morphine 10mg po/sl q4 prn pain (6-10). * Bowel - Miralax 17gm daily, senna/colace 2 tablets bid, Magnesium citrate 300mL daily prn. * Adult immunization - Administer pneumonia vaccine, covid vaccine, flu vaccine as appropriate. * DVT prophylaxis - Hold, brain mets high risk for intracranial bleeding. * Nausea - Zofran 8mg q8 prn nausea/vomiting. * COPD - Incruse 1 puff daily, Albuterol 2 puffs q6 prn. * Zee esophagus - Pantoprazole 40mg daily, TUMS 500mg daily. * Folate deficiency - Folic acid 1mg daily. * Hypothyroidism - Levothyroxine 175mcg daily. * Hypertension - Losartan 50mg daily. * Insomnia - Melatonin 5mg qhs. * Dementia NOS - Memantine 5mg bid. * Dry eyes - Artificial teras 2gtt ou q6h prn. Medications at Discharge Home Medications calcium carbonate (Calcium 600) 600 mg PO BID supplement 10/10/24 folic acid 1 mg tablet 1 mg PO DAILY supplement 10/10/24 pantoprazole 40 mg tablet,delayed release 40 mg PO DAILY reflux 10/10/24 umeclidinium 62.5 mcg/actuation blister powder for inhalation (Incruse Ellipta) 1 inh inhalation DAILY breathing 12/15/24 acetaminophen 500 mg tablet 1,000 mg (2 x 500 mg) PO Q8 #0 tabs 01/01/25 ascorbic acid (vitamin C) 500 mg tablet 500 mg PO DAILY 30 days #30 tabs 01/01/25 levothyroxine 100 mcg tablet 200 mcg (2 x 100 mcg) PO DAILY@0600 30 days #30 tabs 01/01/25 melatonin 10 mg sublingual tablet 5 mg (1/2 x 10 mg) PO QHS 30 days #15 tabs 01/01/25 memantine 10 mg tablet 10 mg PO BID 30 days #60 tabs 01/01/25 morphine concentrate 10 mg/0.5 mL oral syringe (FOR ORAL USE ONLY) 10 mg (0.5 mL) PO/SL Q1H PRN Pain Score 6-10 Or Pre Pt/Ot 7 days #21 mL 01/01/25 oxycodone 5 mg tablet 10 mg (2 x 5 mg) PO Q4H PRN PRN Pain Score 4-5 Or Pre Pt/Ot 7 days #84 tabs 01/01/25 polysaccharide iron complex 150 mg iron capsule (Ferrex) 150 mg PO DAILY 30 days #30 caps 01/01/25 sennosides 8.6 mg-docusate sodium 50 mg tablet (Stimulant Laxative Plus) 2 tab PO BID 30 days #120 tabs 01/01/25 simethicone 80 mg chewable tablet 80 mg PO TIDPC PRN Gas 30 days #90 tabs 01/01/25 tramadol 50 mg tablet 50 mg PO Q6H PRN PRN Pain Score 1-3 Or Pre Pt/Ot 7 days #28 tabs 01/01/25 Hospital Course Operations - (See below.) Procedures None Summary of Care Provided Minutes Spent on Discharge: 35 Hospital Course: 79 year old female with below past medical history hospitalized for left pathologic femoral neck fracture 2/2 lung cancer mets, underwent cephalomedullary nailing 12/19/[address] Diallo, postoperative course complicated by hyponatremia, atrial flutter with rapid ventricular response, acute blood loss anemia, admitted to TCU with debility, here for rehabilitation, strengthening, prior to discharge home alone. Discharge 01/04/2025 to [facility], PT/OT. Physical Exam Const alert General Appearance: cooperative HEENT normocephalic Eyes PERRL and EOMs intact bilaterally Neck supple, no JVD and no carotid bruits Resp normal respiratory effort, normal air movement and clear to auscultation bilaterally Cardio regular rate and regular rhythm GI normal to inspection, nondistended, normoactive bowel sounds, non-tender and non-distended Extremity normal capillary refill General Extremity: Negative for edema Skin no rashes or lesions noted General Skin Exam: no breakdown Psych affect normal Appearance: appropriate Medical Records Data Medical Nutrition Assessment Dietitian: Malnutrition Criteria Met Start: 12/22/24 16:10 Freq: Status: Active Protocol: Document 12/27/24 13:57 SLA (Rec: 12/27/24 13:57 CLAUDIA [id number]) Nutrition Malnutrition Evidence of Yes Malnutrition Exists Malnutrition (severe Acute Illness/Injury ): Evidenced By Suboptimal Energy Intake (Severe),Weight Loss (Severe) Clinical Problem Acute Disease or Injury Related Malnutrition Etiology related to taste changes, no appetite and inadequate energy intake Signs/Symptoms as evidenced by unplanned wt loss of 17.9% and 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 Weight / BMI Weight Weight: 64.909 kg Body Mass Index (BMI) 24.5 ABG / Lab / Microbiology Data 12/29/24 05:50 12/30/24 05:25 Microbiology: Microbiology 12/23/24 18:45 Stool Stool Occult Blood (JUAN) - Final 12/23/24 10:29 Mucosa - Nasopharyngeal Respiratory Panel (PCR) - Final 12/23/24 10:35 Nasal Secretion SARS-CoV-2 Antigen (Rapid) - Final D/C Instructions Discharge Diet: No restrictions Discharge Activity: Return to Normal Activity, May Shower and Use Walker Weight Bearing Status: Weight bearing as tolerated Call your doctor if you observe: Fever of 101 or Higher, Inability to urinate, Inability to have a bowel movement, Shortness of breath, Dizziness, Fainting spells, Swelling in the ankles, Chest pain and Uncontrolled pain DC O2, CPAP, BIPAP Needs Home O2 Discharge instructions: No Additional Instructions: Discharge 01/04/2025 to [facility], PT/OT. Please Follow Up With: Dr. Oscar Diallo When: As scheduled. Meaningful Use Info Meaningful Use Meaningful Use Diagnoses (Choose all that apply): None applicable Ischemic Stroke Statin Dosing Therapy Reference: STATIN DOSE THERAPY REFERENCE: * Patients > 75 years receive moderate or high dose statin therapy. * Patients 75 years or YOUNGER should receive HIGH intensity statin dose unless contraindicated. You will be required to document reason for non-treatment if statin daily dose does not meet guidelines. HIGH DOSE STATIN THERAPY DAILY Atorvastatin > than or = to 40 mg Rosuvastatin > than or = to 20 mg Amlodipine + Atorvastatin > than or = to 2.5/40 mg Ezetimibe + Simvastatin 10/80 mg Simvastatin 80mg Discharge Plan Admission Admit Date/Time: 12/22/24 14:20 Primary Reason for Your Visit: Debility. Attending Provider: Carlos Rosas Chi Primary Care Provider: Ross Magallon Instructions Additional Instructions / Restrictions: Discharge 01/04/2025 to [facility], PT/OT. Discharge Orders/Prescriptions Prescriptions: New acetaminophen 500 mg Tablet 1,000 mg PO Q8 Qty: 0 0RF ascorbic acid (vitamin C) 500 mg Tablet 500 mg PO DAILY 30 Days Qty: 30 0RF polysaccharide iron complex [Ferrex 150] 150 mg iron Capsule 150 mg PO DAILY 30 Days Qty: 30 0RF levothyroxine 100 mcg Tablet 200 mcg PO DAILY@0600 30 Days Qty: 30 0RF melatonin 10 mg Tablet, Sublingual 5 mg PO QHS 30 Days Qty: 15 0RF memantine 10 mg Tablet 10 mg PO BID 30 Days Qty: 60 0RF morphine concentrate 10 mg/0.5 mL Syringe 10 mg PO/SL Q1H PRN (Reason: Pain Score 6-10 Or Pre Pt/Ot) 7 Days Qty: 21 0RF sennosides-docusate sodium [Stimulant Laxative Plus] 8.6-50 mg Tablet 2 tab PO BID 30 Days Qty: 120 0RF oxycodone 5 mg Tablet 10 mg PO Q4H PRN PRN (Reason: Pain Score 4-5 Or Pre Pt/Ot) 7 Days Qty: 84 0RF simethicone 80 mg Tablet,Chewable 80 mg PO TIDPC PRN (Reason: Gas) 30 Days Qty: 90 0RF tramadol 50 mg Tablet 50 mg PO Q6H PRN PRN (Reason: Pain Score 1-3 Or Pre Pt/Ot) 7 Days Qty: 28 0RF Continued pantoprazole 40 mg tablet,delayed release (DR/EC) 40 mg PO DAILY calcium carbonate [Calcium 600] 600 mg calcium (1,500 mg) tablet 600 mg PO BID folic acid 1 mg tablet 1 mg PO DAILY Incruse Ellipta 62.5 mcg/actuation blister with device 1 inh inhalation DAILY Discontinued memantine 7 mg capsule,sprinkle,ER 24hr 7 mg PO BID ondansetron HCl 8 mg tablet 8 mg PO Q8H PRN PRN (Reason: nausea and vomiting) levothyroxine 175 mcg tablet 25 mcg PO DAILY losartan 50 mg tablet 50 mg PO DAILY Patient Comments: Hold for systolic BP<100 melatonin 5 mg tablet 5 mg PO QHS albuterol sulfate 90 mcg/actuation HFA aerosol inhaler 2 puff inhalation Q6H PRN (Reason: wheezing) hydrocodone-acetaminophen 5-325 mg tablet 1 tab PO TID PRN (Reason: pain) naproxen 500 mg tablet 500 mg PO BID fluticasone propionate [24 Hour Allergy Relief] 50 mcg/actuation spray,suspension 1 spray intranasal DAILY PRN (Reason: allergy symptoms) Rx Instructions: administer into each nostril acetaminophen 500 mg tablet 1,000 mg PO Q6H PRN (Reason: fever or pain) polyethylene glycol 3350 [ClearLax] 17 gram/dose powder 17 g PO DAILY meloxicam 15 mg tablet 15 mg PO DAILY Referrals / Follow Up: Dr. Oscar Diallo [Other] - 01/25/25 2:30 pm (Please arrive at 2:15, take ID, insurance, med list ) Efrain Houser MD [Med Staff - Active Staff] - Within 1 Week (Metastatic lung cancer.) Ross Magallon DO [Primary Care Provider] - 01/09/25 10:40 am (appt with MARCOS Keys) Disposition Disposition (needs filled in before D/C Order can be placed): Assisted Living
[2025-01-01] MEDS: MELATONIN 10 MG TABLET 5 MG PO (21:27)
[2025-01-02] MEDS: morphine (oral solution) 10MG/0.5ML Syringe 10 MG SL/PO ×5 (03:04→22:25)
[2025-01-02] MEDS: oxyCODONE 5 MG Tablet 10 MG PO ×3 (04:00→20:32)
[2025-01-02] MEDS: traMADol 50 MG Tablet PO (05:14)
[2025-01-02] MEDS: Acetaminophen 500 MG Tablet 1000 MG PO ×3 (05:15→20:33)
[2025-01-02] MEDS: Levothyroxine 100 MCG Tablet 200 MCG PO (05:15)
[2025-01-02 06:58] VITALS: O2SAT 99
[2025-01-02 07:58] VITALS: BP 115/74; PULSE 99; RESP 16; TEMP 35.9; O2SAT 96
[2025-01-02] MEDS: Iron Polysaccharide Complex 150 MG CAPSULE PO (08:02)
[2025-01-02] MEDS: Umeclidinium Bromide Inhaler 1 PUFF INHALATION (08:02)
[2025-01-02] MEDS: Memantine Hydrochloride 10 MG Tablet PO ×2 (08:02→20:33)
[2025-01-02] MEDS: Polyethylene Glycol 3350 17 GM PACKET PO (08:02)
[2025-01-02] MEDS: Folic Acid 1 MG Tablet PO (08:02)
[2025-01-02] MEDS: Pantoprazole Sodium 40 MG Tablet PO (08:02)
[2025-01-02] MEDS: Ascorbic Acid 500 MG Tablet PO (08:03)
--- NOTE | 2025-01-02 08:54 | CASEMGMT ---
Social Work SW sent referral to [facility]. Palliative to contact pt and dtr to schedule first visit. Kacie Christian FUNCTIONAL ANALYST SCREW MACHINE SET UP OPERATOR TOOL
--- NOTE | 2025-01-02 09:17 | NURSING ---
medicated pt with morphine per order, pt off unit to xray at this time. c/o back pain
--- NOTE | 2025-01-02 09:25 | RAD_ITS ---
PROCEDURE: HIP, UNI W/ PELVIS 2-3 VIEWS 01/02/2025 REASON FOR EXAM: POST-OP TECHNIQUE: Five views of the left hip were obtained. COMPARISON: Comparison is made with prior study dated December 15, 2024. FINDINGS: Bones: The patient is status post open reduction and internal fixation of the left intertrochanteric fracture with a intramedullary richardson and screw fixation device. Satisfactory alignment. Joints: Mild degree of joint space narrowing. Soft tissues: Soft tissue swelling. Other: RAD/HIP, UNI W/ Pelvis 2-3 Views IMPRESSION: Status post ORIF of the left femur as described. Reading Location: [facility]
--- NOTE | 2025-01-02 10:53 | NURSING ---
disc of xrays of LT femur/hip sent in mail. dropped off with 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 faxed report to Dr Verde as well & note left that pt being discharged to [facility] on 01/04
[2025-01-02 11:39] VITALS: BMI 24.4
[2025-01-02 14:18] VITALS: O2SAT 93; O2SAT 96
[2025-01-02 16:36] VITALS: O2SAT 99
--- NOTE | 2025-01-02 18:34 | NURSING ---
pt saturation 99% on 3 liters all day, turned down to 2 liters this evening. medicated for pain 04/01 back. resting in chair, legs elevated. call light in reach.
--- NOTE | 2025-01-02 18:35 | NURSING ---
13 farooq removed from LT hip incision and 2 leg incisions. distal incisions well approximated, no s/s infection. proximal incision pink/dry flaky skin
[2025-01-02 18:36] VITALS: PULSE 102; RESP 16; O2SAT 97
[2025-01-02] MEDS: MELATONIN 10 MG TABLET 5 MG PO (20:33)
[2025-01-02 21:15] VITALS: PULSE 104; O2SAT 94
[2025-01-03 03:01] VITALS: PULSE 105; RESP 16; O2SAT 87
[2025-01-03] MEDS: morphine (oral solution) 10MG/0.5ML Syringe 10 MG SL/PO ×4 (03:31→16:36)
[2025-01-03 04:38] VITALS: BP 123/62; PULSE 104; O2SAT 89
--- NOTE | 2025-01-03 04:39 | NURSING ---
Addendum entered by Brenda Jarvis 01/03/25 05:22: Per patient, simethicone effective. Denies pain to diaphragm at this time. Denies further assistance. 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 This nurse entered patient's room to assess patient. Patient described pain as persistent and sharp all of a sudden. Patient pointing towards diaphragm, denies radiating pain. Patient reports having this pain before, has had two EKGs d/t this pain previously, normal results. Patient burping frequently, offered PRN simethicone to see if that relieves the gas and helps pain in diaphragm. Patient agreed to trying medication. Vitals stable, patient is not showing any s/s of distress.
[2025-01-03] MEDS: SimETHICONE 80 MG Chewable Tablet PO ×2 (04:45→11:12)
[2025-01-03] MEDS: Acetaminophen 500 MG Tablet 1000 MG PO ×3 (04:46→22:16)
[2025-01-03] MEDS: oxyCODONE 5 MG Tablet 10 MG PO ×4 (04:46→23:51)
[2025-01-03] MEDS: Levothyroxine 100 MCG Tablet 200 MCG PO (04:46)
[2025-01-03 08:02] VITALS: BP 114/65; PULSE 105; RESP 18; TEMP 35.8; O2SAT 94
[2025-01-03] MEDS: Polyethylene Glycol 3350 17 GM PACKET PO (08:05)
[2025-01-03] MEDS: Ascorbic Acid 500 MG Tablet PO (08:05)
[2025-01-03] MEDS: Memantine Hydrochloride 10 MG Tablet PO ×2 (08:06→22:15)
[2025-01-03] MEDS: Pantoprazole Sodium 40 MG Tablet PO (08:06)
[2025-01-03] MEDS: Senna/Docusate Sodium 1 Tablet 2 TABLET PO ×2 (08:06→22:15)
[2025-01-03] MEDS: Calcium Carbonate 500 MG Tablet PO (08:06)
[2025-01-03] MEDS: Umeclidinium Bromide Inhaler 1 PUFF INHALATION (08:06)
[2025-01-03] MEDS: Folic Acid 1 MG Tablet PO (08:06)
[2025-01-03] MEDS: Iron Polysaccharide Complex 150 MG CAPSULE PO (08:06)
--- NOTE | 2025-01-03 08:46 | CASEMGMT ---
Social Work SW had 16 desaturation events on overnight trending pulse ox. ordered O2. DORINDA [place] [facility] [place] [facility]. Kacie Christian DATA ANALYTICS DEVELOPER AUTO GLASS WORKER
[2025-01-03 11:14] VITALS: PULSE 69; O2SAT 99
[2025-01-03 13:19] VITALS: O2SAT 93
--- NOTE | 2025-01-03 13:53 | CASEMGMT ---
Social Work- SW met with pt to complete BIMS assessment; pt scored 14/15. Pt scored 0/2 on PHQ9. Pt reports no needs at this time. COREEN Shaw
[2025-01-03 18:26] VITALS: O2SAT 91
--- NOTE | 2025-01-03 18:29 | NURSING ---
pt assisted to BR, sat 91% with exertion on room air, but HR elevated 115. UNIFORMS SALES REPRESENTATIVE assisting pt with HS care and will apply oxygen at night d/t 16 desats during overnight pulse ox.
[2025-01-03] MEDS: MELATONIN 10 MG TABLET 5 MG PO (22:14)
[2025-01-03] MEDS: traMADol 50 MG Tablet PO (22:19)
[2025-01-04] MEDS: morphine (oral solution) 10MG/0.5ML Syringe 10 MG SL/PO ×3 (03:31→12:01)
[2025-01-04] MEDS: oxyCODONE 5 MG Tablet 10 MG PO ×2 (05:20→13:14)
[2025-01-04] MEDS: Levothyroxine 100 MCG Tablet 200 MCG PO (05:21)
[2025-01-04] MEDS: Acetaminophen 500 MG Tablet 1000 MG PO ×2 (05:22→13:15)
[2025-01-04 05:27] VITALS: RESP 16
--- NOTE | 2025-01-04 07:21 | MDS.RN ---
Information for the MDS was obtained from review of the clinical record, interview of resident, staff, and direct observation of resident?s care.
[2025-01-04] MEDS: Iron Polysaccharide Complex 150 MG CAPSULE PO (08:31)
[2025-01-04] MEDS: Polyethylene Glycol 3350 17 GM PACKET PO (08:31)
[2025-01-04] MEDS: Ascorbic Acid 500 MG Tablet PO (08:31)
[2025-01-04] MEDS: Umeclidinium Bromide Inhaler 1 PUFF INHALATION (08:31)
[2025-01-04] MEDS: Memantine Hydrochloride 10 MG Tablet PO (08:31)
[2025-01-04] MEDS: Calcium Carbonate 500 MG Tablet PO (08:31)
[2025-01-04] MEDS: Pantoprazole Sodium 40 MG Tablet PO (08:31)
[2025-01-04] MEDS: Senna/Docusate Sodium 1 Tablet 2 TABLET PO (08:31)
[2025-01-04] MEDS: Folic Acid 1 MG Tablet PO (08:31)
[2025-01-04 15:39] VITALS: BP 131/76; PULSE 76; RESP 18; TEMP 36.3; O2SAT 99
== END 2025-01-04 14:30 | disposition home or self-care (01) | DRG 559 ==
PROVIDERS: Admitting Provider Family Medicine Geriatric Medicine; PCP Student in an Organized Health Care Education/Training Program; Referring Provider Family Medicine Geriatric Medicine; Visit Provider Family Medicine Geriatric Medicine
DX: M84.552D Pathological fracture in neoplastic disease, left femur, subsequent encounter for fracture with routine healing (principal); J18.9 Pneumonia, unspecified organism; E44.1 Mild protein-calorie malnutrition; C79.31 Secondary malignant neoplasm of brain; I48.92 Unspecified atrial flutter; C79.51 Secondary malignant neoplasm of bone; E87.1 Hypo-osmolality and hyponatremia; C34.90 Malignant neoplasm of unspecified part of unspecified bronchus or lung; J44.9 Chronic obstructive pulmonary disease, unspecified; F03.90 Unspecified dementia, unspecified severity, without behavioral disturbance, psychotic disturbance, mood disturbance, and anxiety; E03.9 Hypothyroidism, unspecified; I10 Essential (primary) hypertension; D50.9 Iron deficiency anemia, unspecified; E78.5 Hyperlipidemia, unspecified; E53.8 Deficiency of other specified B group vitamins; G47.00 Insomnia, unspecified; Z87.891 Personal history of nicotine dependence; Z79.890 Hormone replacement therapy; Z68.24 Body mass index [BMI] 24.0-24.9, adult
CPT/HCPCS: 36415; 71046; 73502; 80048; 80061; 81001; 82274; 82728; 83540; 83550; 83930; 83935; 84300; 84443; 84484; 85025; 87633; 87811; 93005; 94762; 97110; 97116; 97162; 97166; 97530; 97535; 97802